=== PATIENT | female | born 1935 | race Caucasian/White ===

== ENCOUNTER 2018-05-04 18:21 | Observation (INO) | payer MEDICARE, BC ==
[~2018-05-04] VITALS: Ht 154.9 cm; Wt 53.2 kg
[2018-05-04 18:55] LABS: BASOPHILS % (AUTO) 0.3 % (0-1); EOSINOPHILS # (AUTO) 0.2 X10'3 (0-0.9); EOSINOPHILS % (AUTO) 1.7 % (0-6); HEMATOCRIT 39.3 % (35.0-45.0); HEMOGLOBIN 13.4 g/dl (12.0-16.0); LYMPHOCYTES # (AUTO) 1.3 X10'3 (1.1-4.8); LYMPHOCYTES % (AUTO) 13.6 % (21-51); MEAN CORPUSCULAR HGB CONC 34.2 g/dL (33.0-36.5); MEAN CORPUSCULAR VOLUME 96.5 FL (78-98); MEAN PLATELET VOLUME 8.8 FL (7.4-10.4); MONOCYTES # (AUTO) 0.7 X10'3 (0-0.9); MONOCYTES % (AUTO) 7.1 % (2-12); NEUTROPHILS # (AUTO) 7.6 X10'3 (1.8-7.7); NEUTROPHILS % (AUTO) 77.3 % (42-75); PLATELET COUNT 296 X10'3 (140-440); RED BLOOD COUNT 4.07 X10'6 (4.20-5.60); RED CELL DISTRIBUTION WIDTH 12.6 % (11.5-14.5); WHITE BLOOD COUNT 9.9 X10'3 (4.5-11.0)
[2018-05-04 19:01] LABS: PARTIAL THROMBOPLASTIN TIME 29 SECONDS (22-32); PROTHROMBIN TIME 10.4 SECONDS (9.0-12.0)
[2018-05-04 19:04] LABS: ALANINE AMINOTRANSFERASE 25 U/L (12-78); ALBUMIN 3.7 G/DL (3.4-5.0); ALKALINE PHOSPHATASE 62 IU/L (46-116); ANION GAP 12 (8-16); ASPARTATE AMINO TRANSFERASE 28 U/L (10-37); BILIRUBIN,TOTAL 1.3 MG/DL (0.1-1.0); BLOOD UREA NITROGEN 7 MG/DL (7-18); BUN/CREATININE RATIO 12.1 (6.6-38.0); CALCIUM 8.7 MG/DL (8.5-10.1); CHLORIDE 90 MMOL/L (99-107); CREATININE 0.58 MG/DL (0.40-0.90); GLUCOSE 104 MG/DL (70-104); MAGNESIUM 1.5 MG/DL (1.5-2.4); SODIUM 129 MMOL/L (135-145); TOTAL CARBON DIOXIDE 27.2 MMOL/L (24-32); TOTAL PROTEIN 7.5 G/DL (6.4-8.2); eGFR > 90 ML/MIN
[2018-05-04] MEDS ORDERED: labetalol 20mg/4ml (5mg/ml) syringe IV ONE (19:30)
[2018-05-04] MEDS ORDERED: HYDROcodone/acetaminophen 5mg/325mg tablet PO PRN (21:00)
[2018-05-04] MEDS ORDERED: magnesium hydroxide 30ml (MOM) UD suspension PO PRN (21:00)
[2018-05-04] MEDS ORDERED: acetaminophen 325mg tablet PO PRN (21:00)
[2018-05-04] MEDS ORDERED: potassium Cl 20 mEq SR tablet PO ONE (21:00)
[2018-05-04] MEDS ORDERED: morphine 4 MG/ML inj SYRINge IV PRN (21:00)
[2018-05-04] MEDS ORDERED: cloNIDine 0.1 mg tablet PO PRN (21:00)
[2018-05-04] MEDS ORDERED: ondansetron/PF 4mg/2ml inj IV PRN (21:00)
[2018-05-04] MEDS ORDERED: mag hydrox/Alum hydrox/simeth 30ml oral suspension PO PRN (21:00)
[2018-05-04] MEDS ORDERED: CLOP75TA35 PO (21:11)
[2018-05-04] MEDS ORDERED: ROSU10TA PO (21:11)
[2018-05-04] MEDS ORDERED: HYDR12.55 PO (21:11)
[2018-05-04] MEDS ORDERED: LEVO75TA PO (21:11)
[2018-05-04] MEDS ORDERED: OLME20TA23 (21:11)
[2018-05-04] MEDS ORDERED: METO100T7 PO (21:11)
[2018-05-04] MEDS ORDERED: VALS160T2 PO (21:11)
[2018-05-04] MEDS ORDERED: OLME1TAB40 (21:11)
[2018-05-04 21:59] LABS: HEMOGLOBIN A1C 5.4 % (4.5-6.2)
--- NOTE | 2018-05-04 22:00 | NUR ---
Received report from Alek BUTLER in ER, pt arrived via [place] ambulated to bathroom then bed, will assess.
[2018-05-04 22:15] VITALS: BP 183/77
[2018-05-04] MEDS ORDERED: NABU500T2 PO (22:37)
[2018-05-04] MEDS ORDERED: DENO60DI (22:37)
[2018-05-04] MEDS ORDERED: CYAN100070 PO (22:37)
[2018-05-04] MEDS ORDERED: MV-M1TAB19 PO (22:37)
[2018-05-04] MEDS ORDERED: CLOB15OI3 TOP (22:37)
[2018-05-04] MEDS ORDERED: CALC600T12 PO (22:37)
[2018-05-04] MEDS ORDERED: MULT-1141 PO (22:37)
[2018-05-04] MEDS ORDERED: ASPI-1053 PO (22:37)
[2018-05-04 23:41] VITALS: BP 171/90
[2018-05-05 00:47] LABS: ALANINE AMINOTRANSFERASE 22 U/L (12-78); ALBUMIN 3.1 G/DL (3.4-5.0); ALBUMIN/GLOBULIN RATIO 0.9 (1.1-1.5); ALKALINE PHOSPHATASE 51 IU/L (46-116); ANION GAP 11 (8-16); ASPARTATE AMINO TRANSFERASE 21 U/L (10-37); BILIRUBIN,TOTAL 1.2 MG/DL (0.1-1.0); BLOOD UREA NITROGEN 7 MG/DL (7-18); BUN/CREATININE RATIO 12.7 (6.6-38.0); CHLORIDE 91 MMOL/L (99-107); CREATININE 0.55 MG/DL (0.40-0.90); GLUCOSE 151 MG/DL (70-104); POTASSIUM 3.6 MMOL/L (3.5-5.1); SODIUM 128 MMOL/L (135-145); TOTAL CARBON DIOXIDE 26.5 MMOL/L (24-32); TOTAL PROTEIN 6.4 G/DL (6.4-8.2); eGFR > 90 ML/MIN
[2018-05-05 00:49] LABS: CHOL/HDL RATIO 1.7 (0.00-4.99); CHOLESTEROL 154 MG/DL (0-200); HDL CHOLESTEROL 93 MG/DL (35-60); LDL CHOLESTEROL 63 MG/DL (50-100); MAGNESIUM 1.4 MG/DL (1.5-2.4); TRIGLYCERIDES 27 MG/DL (20-135)
[2018-05-05] MEDS ORDERED: potassium Cl 40MEQ/NS 500ml 500 ML IV PRN ×2 (02:50)
[2018-05-05] MEDS ORDERED: potassium Cl 20 mEq SR tablet PO PRN ×2 (02:50)
--- NOTE | 2018-05-05 02:58 | NUR ---
Informed Dr. Fortune of increasing trends in trops from .04 to 0.13, to 0.21, Dr. Fortune stated she is going to wait until 4th trop comes back, and informed Dr. Fortune of 1.4 Mg she ordered the K and Mg protocol
--- NOTE | 2018-05-05 06:20 | NUR ---
Gave report to Petra BUTLER pt is resting on RA in no apparent distress, call light and items of freq use within reach.
--- NOTE | 2018-05-05 06:31 | NUR ---
Patient in room JESUS 356. I have received report from OLGA BUTLER and had the opportunity to ask questions and assume patient care. Addendum: 05/05/18 at 0631 by Petra Rodriguez RN FROM [facility]
[2018-05-05 07:00] VITALS: BP 118/64
[2018-05-05] MEDS ORDERED: enoxaparin 40mg/0.4ml syringe SUBCUT SCH (08:00)
[2018-05-05 08:14] LABS: BASOPHILS % (AUTO) 0.1 % (0-1); EOSINOPHILS % (AUTO) 0.5 % (0-6); HEMATOCRIT 34.1 % (35.0-45.0); HEMOGLOBIN 11.7 g/dl (12.0-16.0); LYMPHOCYTES # (AUTO) 1.4 X10'3 (1.1-4.8); LYMPHOCYTES % (AUTO) 15.5 % (21-51); MEAN CORPUSCULAR HEMOGLOBIN 33.2 PG (27.0-31.0); MEAN CORPUSCULAR HGB CONC 34.4 g/dL (33.0-36.5); MEAN CORPUSCULAR VOLUME 96.5 FL (78-98); MEAN PLATELET VOLUME 9.1 FL (7.4-10.4); MONOCYTES # (AUTO) 1.1 X10'3 (0-0.9); MONOCYTES % (AUTO) 11.9 % (2-12); NEUTROPHILS # (AUTO) 6.5 X10'3 (1.8-7.7); PLATELET COUNT 206 X10'3 (140-440); RED BLOOD COUNT 3.53 X10'6 (4.20-5.60); RED CELL DISTRIBUTION WIDTH 13.1 % (11.5-14.5); WHITE BLOOD COUNT 9.1 X10'3 (4.5-11.0)
[2018-05-05 08:26] LABS: POTASSIUM 3.9 MMOL/L (3.5-5.1)
[2018-05-05] MEDS ORDERED: magnesium 2GM in 50ml NS 50 ML IV PRN (10:40)
[2018-05-05] MEDS ORDERED: magnesium Cl slow-release 64mg tablet PO PRN (10:40)
[2018-05-05] MEDS ORDERED: magnesium 4gm in 100ml NS 100 ML IV PRN (10:40)
[2018-05-05] MEDS ORDERED: LOSA50TA64 PO (12:18)
[2018-05-05] MEDS ORDERED: HYDR12.5 PO (12:18)
[2018-05-05] MEDS ORDERED: MAGN400C PO (13:19)
[2018-05-06] MEDS ORDERED: metoprolol succinate 25mg (24-HOUR) SR. Tablet PO SCH (08:00)
[2018-05-06] MEDS ORDERED: HYDROchlorothiazide 12.5mg capsule PO SCH (08:00)
[2018-05-06] MEDS ORDERED: atorvastatin 20mg tablet PO SCH (08:00)
[2018-05-06] MEDS ORDERED: aspirin 81mg tab.chew PO SCH (08:00)
[2018-05-06] MEDS ORDERED: losartan 50mg tablet PO SCH (08:00)
[2018-05-06] MEDS ORDERED: levoTHYROXINE 75mcg tablet PO SCH (08:00)
[2018-05-06] MEDS ORDERED: clopidogrel 75mg tablet PO SCH (08:00)
== END 2018-05-05 15:35 | disposition home or self-care (01) ==
LOC: ER 18:22 → ED HOLD 21:00 → SUR 3N 22:04
PROVIDERS: ADMIT Internal Medicine; ATTEND Internal Medicine
DX: R07.89 Other chest pain (principal); I10 Essential (primary) hypertension; I16.0 Hypertensive urgency; E03.9 Hypothyroidism, unspecified; E87.6 Hypokalemia; E87.1 Hypo-osmolality and hyponatremia; I73.9 Peripheral vascular disease, unspecified; Z86.718 Personal history of other venous thrombosis and embolism; Z87.891 Personal history of nicotine dependence
CPT/HCPCS: 36415; 71045; 80053; 80061; 83036; 83735; 83880; 84132; 84484; 85025; 85610; 85730; 87070; 93005; 93306; 96372; 96374; 99284; G0378; J1650; J3490

== ENCOUNTER 2020-03-11 15:11 | Inpatient (IN) | payer MEDICARE, BC ==
[~2020-03-11] VITALS: Ht 160 cm; Wt 46.5 kg
[~2020-03-11 15:11] MED LIST: CLOP75TA33 PO; HYDR12.55 PO; LEVO75TA PO; METO-411 PO; PANT40TA54 PO; ROSU40TA22 PO; VALS320T17 PO
--- NOTE | 2020-03-11 15:59 | NUR ---
felix reports pt was negative covid on 03/04/2020
[2020-03-11] MEDS ORDERED: OMEP40CA13 PO (16:48)
[2020-03-11] MEDS ORDERED: furosemide 10 MG/1 ML 10ml inj IV ONE (16:55)
[2020-03-11 18:42] LABS: BASOPHILS # (AUTO) 0.1 X10'3 (0-0.2); EOSINOPHILS # (AUTO) 0.1 X10'3 (0-0.9); HEMOGLOBIN 9.2 g/dl (12.0-16.0); LYMPHOCYTES # (AUTO) 1.7 X10'3 (1.1-4.8); MEAN CORPUSCULAR HEMOGLOBIN 32.1 PG (27.0-31.0); MEAN PLATELET VOLUME 7.6 FL (7.4-10.4); MONOCYTES % (AUTO) 7.6 % (2-12); WHITE BLOOD COUNT 13.2 X10'3 (4.5-11.0)
[2020-03-11 18:44] LABS: BASOPHILS % (AUTO) 0.8 % (0-1); HEMATOCRIT 26.7 % (35.0-45.0); LYMPHOCYTES % (AUTO) 12.5 % (21-51); MEAN CORPUSCULAR HGB CONC 34.2 g/dL (33.0-36.5); MEAN CORPUSCULAR VOLUME 93.6 FL (78-98); NEUTROPHILS # (AUTO) 10.3 X10'3 (1.8-7.7); NEUTROPHILS % (AUTO) 78.1 % (42-75); PLATELET COUNT 645 X10'3 (140-440); RED BLOOD COUNT 2.86 X10'6 (4.20-5.60)
[2020-03-11 18:57] LABS: PARTIAL THROMBOPLASTIN TIME 26 SECONDS (22-32)
[2020-03-11 19:01] LABS: ALANINE AMINOTRANSFERASE 21 U/L (12-78); ALBUMIN 1.4 G/DL (3.4-5.0); ALBUMIN/GLOBULIN RATIO 0.3 (1.1-1.5); ALKALINE PHOSPHATASE 84 IU/L (46-116); ANION GAP 8 (8-16); ASPARTATE AMINO TRANSFERASE 25 U/L (10-37); BILIRUBIN,TOTAL 0.3 MG/DL (0.1-1.0); BLOOD UREA NITROGEN 19 MG/DL (7-18); BUN/CREATININE RATIO 15.3 (6.6-38.0); CALCIUM 8.2 MG/DL (8.5-10.1); CHLORIDE 98 MMOL/L (99-107); CREATININE 1.24 MG/DL (0.40-0.90); GLUCOSE 92 MG/DL (70-104); POTASSIUM 3.6 MMOL/L (3.5-5.1); SODIUM 135 MMOL/L (135-145); TOTAL CARBON DIOXIDE 28.8 MMOL/L (24-32); TOTAL PROTEIN 5.9 G/DL (6.4-8.2); eGFR 41 ML/MIN
[2020-03-11] MEDS ORDERED: acetaminophen 325mg tablet PO PRN (20:25)
[2020-03-11] MEDS ORDERED: magnesium 2GM in 50ml NS 50 ML IV PRN (20:25)
[2020-03-11] MEDS ORDERED: albuterol 2.5 MG/3 ML nebule NEB PRN ×2 (20:25)
[2020-03-11] MEDS ORDERED: magnesium Cl slow-release 64mg tablet PO PRN (20:25)
[2020-03-11] MEDS ORDERED: ondansetron/PF 4mg/2ml inj IV PRN (20:25)
[2020-03-11] MEDS ORDERED: magnesium 4gm in 100ml NS 100 ML IV PRN (20:25)
[2020-03-11] MEDS ORDERED: potassium CL 10mEq/100ml bag 100 ML IV PRN ×2 (20:25)
[2020-03-11] MEDS ORDERED: potassium Cl 20 mEq SR tablet PO PRN (20:25)
--- NOTE | 2020-03-11 20:30 | NUR ---
pt had her call light on. The oxygen port to the NRB had pulled off. She was rebreathing her CO2 and very SOB and sat with a good pleth was 57%. Rehooked the oxygen. Informed her to take deep breaths and it popped up to low 90%camden Gomez, Primary RN made aware.
--- NOTE | 2020-03-11 21:08 | NUR ---
PT HAS BEEN ON NRB 15 L. ATTEMPTED TO WEAN PT. PLACED ON SIMPLE FACE MASK AT 8 L. PT O2 SATURATIONS AT 80%. INCREASED TO 10 L AND OS SATS AT 92%. WILL CONTINUE TO MONITOR. ALONSO GOMEZ RN AWARE
--- NOTE | 2020-03-11 22:36 | NUR ---
her sats decreased in the 80s on simple fm, placed her on 15 L NRB and repositioned her up into the bed. Will monitor.
[2020-03-12] VITALS: BP 139/61
--- NOTE | 2020-03-12 | NUR ---
Patient in room PCU 3014. I have received report from CARRIE Marrero and had the opportunity to ask questions and assume patient care. Patient transferred by abena from ED. Patient resting in bed, on 15L non-rebreather. Received in report the patients oxygenation saturation decreases on anything less than a non-rebreather as she is a mouth breather. Appears alert, oriented to person place and location. Came with belongings. Wick in place. VSS. Will continue to monitor throughout shift.
[2020-03-12 02:00] VITALS: BP 129/62
[2020-03-12 06:38] LABS: BASOPHILS # (AUTO) 0.1 X10'3 (0-0.2); EOSINOPHILS # (AUTO) 0.3 X10'3 (0-0.9); MONOCYTES # (AUTO) 0.9 X10'3 (0-0.9)
[2020-03-12 06:39] LABS: BASOPHILS % (AUTO) 1.3 % (0-1); EOSINOPHILS % (AUTO) 2.3 % (0-6); HEMATOCRIT 25.6 % (35.0-45.0); LYMPHOCYTES # (AUTO) 1.5 X10'3 (1.1-4.8); LYMPHOCYTES % (AUTO) 12.2 % (21-51); MEAN CORPUSCULAR HEMOGLOBIN 33.2 PG (27.0-31.0); MEAN CORPUSCULAR HGB CONC 35.3 g/dL (33.0-36.5); MEAN PLATELET VOLUME 7.5 FL (7.4-10.4); MONOCYTES % (AUTO) 7.9 % (2-12); NEUTROPHILS # (AUTO) 9.1 X10'3 (1.8-7.7); NEUTROPHILS % (AUTO) 76.3 % (42-75); PLATELET COUNT 614 X10'3 (140-440); RED BLOOD COUNT 2.73 X10'6 (4.20-5.60); RED CELL DISTRIBUTION WIDTH 14.2 % (11.5-14.5); WHITE BLOOD COUNT 11.9 X10'3 (4.5-11.0)
--- NOTE | 2020-03-12 06:40 | NUR ---
Problems reprioritized. Patient report given, questions answered & plan of care reviewed with CARRIE Lambert. Medications administered as ordered, care plan followed. Patient resting in bed, no signs of distress. Safety measures in place, bed in low and locked position. Will continue to monitor for remainder of shift.
[2020-03-12 06:49] LABS: ALBUMIN 1.3 G/DL (3.4-5.0); ANION GAP 8 (8-16); BLOOD UREA NITROGEN 19 MG/DL (7-18); BUN/CREATININE RATIO 15.6 (6.6-38.0); CALCIUM 7.5 MG/DL (8.5-10.1); CHLORIDE 100 MMOL/L (99-107); CREATININE 1.22 MG/DL (0.40-0.90); GLUCOSE 72 MG/DL (70-104); POTASSIUM 3.5 MMOL/L (3.5-5.1); SODIUM 137 MMOL/L (135-145); TOTAL CARBON DIOXIDE 29.2 MMOL/L (24-32); eGFR 42 ML/MIN
--- NOTE | 2020-03-12 06:51 | NUR ---
Patient in room PCU 3014. I have received report from SHAR BUTLER and had the opportunity to ask questions and assume patient care.
[2020-03-12 07:00] VITALS: BP 129/65
[2020-03-12 07:36] LABS: MAGNESIUM 0.9 MG/DL (1.5-2.4)
--- NOTE | 2020-03-12 07:37 | NUR ---
LAB CALLED FOR A CRITICAL MAG OF 0.9
[2020-03-12] MEDS: K and/or MAG REPLACEMENT MC SCH ×2 (08:00→20:00)
[2020-03-12] MEDS ORDERED: furosemide 40mg/4ml inj IV SCH ×2 (08:00→20:00)
[2020-03-12] MEDS: metoprolol succinate 25mg (24-HOUR) SR. Tablet PO SCH (08:25)
[2020-03-12] MEDS: HYDROchlorothiazide 12.5mg capsule PO SCH (08:25)
[2020-03-12] MEDS: atorvastatin 20mg tablet PO SCH (08:26)
[2020-03-12] MEDS: losartan 50mg tablet PO SCH (08:26)
[2020-03-12] MEDS: levoTHYROXINE 75mcg tablet PO SCH (08:26)
[2020-03-12] MEDS: clopidogrel 75mg tablet PO SCH (08:27)
[2020-03-12] MEDS: furosemide 40mg/4ml inj IV SCH ×2 (08:27→19:14)
[2020-03-12] MEDS: heparin, porcine 5000 units/ml vial SQ SCH ×2 (08:27→19:14)
--- NOTE | 2020-03-12 10:15 | NUR ---
[facility] CALLED TO CHEK ON PT AND INQUIRE ADMIT DX. DISCUSSED CASE.
[2020-03-12 11:00] VITALS: BP 112/64
--- NOTE | 2020-03-12 11:29 | NUR ---
BMI low for age at 18.6; per documented weight history patient's last scale weight was 63.78 kg on bedscale on 03/05/2020; current documented weight 47.73 kg as "ED" weight, appears as error, recommend taking new weight for accuracy. Addendum: 03/12/20 at [address] Amended: Links added.
[2020-03-12] MEDS: pantoprazole 40mg Tablet.DR PO SCH (11:45)
[2020-03-12 18:00] VITALS: BP 143/58
--- NOTE | 2020-03-12 18:30 | NUR ---
Patient in room PCU 3014. I have received report from Petra BUTLER and had the opportunity to ask questions and assume patient care.
--- NOTE | 2020-03-12 18:30 | NUR ---
Problems reprioritized. Patient report given, questions answered & plan of care reviewed with JAJA BUTLRE.
[2020-03-12] MEDS: magnesium Cl slow-release 64mg tablet PO SCH (19:15)
[2020-03-12] MEDS ORDERED: magnesium oxide 400mg tablet PO SCH (20:00)
[2020-03-12] MEDS ORDERED: ondansetron 4mg rapidly disintigrating tab PO PRN (20:00)
[2020-03-12 22:00] VITALS: BP 141/62
[2020-03-13 02:00] VITALS: BP 138/70
[2020-03-13 06:00] VITALS: BP 138/54
--- NOTE | 2020-03-13 06:16 | NUR ---
Problems reprioritized. Patient report given, questions answered & plan of care reviewed with HIEN BUTLER.
--- NOTE | 2020-03-13 06:24 | NUR ---
Patient in room U 3014B. I have received report from CARRIE WILKINSON and had the opportunity to ask questions and assume patient care.
[2020-03-13] MEDS: pantoprazole 40mg Tablet.DR PO SCH (07:30)
[2020-03-13 07:59] LABS: ALBUMIN 1.2 G/DL (3.4-5.0); ANION GAP 5 (8-16); BLOOD UREA NITROGEN 19 MG/DL (7-18); BUN/CREATININE RATIO 18.6 (6.6-38.0); CALCIUM 8.5 MG/DL (8.5-10.1); CHLORIDE 99 MMOL/L (99-107); CREATININE 1.02 MG/DL (0.40-0.90); GLUCOSE 83 MG/DL (70-104); MAGNESIUM 2.4 MG/DL (1.5-2.4); SODIUM 138 MMOL/L (135-145); TOTAL CARBON DIOXIDE 34.2 MMOL/L (24-32); eGFR 51 ML/MIN
[2020-03-13] MEDS: levoTHYROXINE 75mcg tablet PO SCH (08:00)
[2020-03-13] MEDS: azithromycin 250mg tablet PO SCH (08:00)
[2020-03-13] MEDS: furosemide 40mg/4ml inj IV SCH ×2 (08:00→21:07)
[2020-03-13] MEDS: atorvastatin 20mg tablet PO SCH (08:00)
[2020-03-13] MEDS: CefTRIAXone/D5W-Rocephin 1gm 50 ML IV SCH (08:00)
[2020-03-13] MEDS: heparin, porcine 5000 units/ml vial SQ SCH ×2 (08:00→20:00)
[2020-03-13] MEDS: K and/or MAG REPLACEMENT MC SCH ×2 (08:00→20:00)
[2020-03-13] MEDS: HYDROchlorothiazide 12.5mg capsule PO SCH (08:00)
[2020-03-13] MEDS: magnesium Cl slow-release 64mg tablet PO SCH ×2 (08:00→20:00)
[2020-03-13] MEDS: clopidogrel 75mg tablet PO SCH (08:00)
[2020-03-13] MEDS: metoprolol succinate 25mg (24-HOUR) SR. Tablet PO SCH (08:00)
[2020-03-13] MEDS: losartan 50mg tablet PO SCH (08:00)
[2020-03-13 08:02] LABS: POTASSIUM 2.6 MMOL/L (3.5-5.1)
--- NOTE | 2020-03-13 08:04 | NUR ---
CRITICAL POTASSIUM 2.9 # [id number], DR ZAVALA AWAITING CALL BACK. WILL REPLACE PER PROTOCAL
[2020-03-13 08:23] LABS: BASOPHILS # (AUTO) 0.1 X10'3 (0-0.2); BASOPHILS % (AUTO) 0.8 % (0-1); EOSINOPHILS # (AUTO) 0.4 X10'3 (0-0.9); EOSINOPHILS % (AUTO) 3.8 % (0-6); HEMATOCRIT 25.1 % (35.0-45.0); HEMOGLOBIN 8.8 g/dl (12.0-16.0); LYMPHOCYTES # (AUTO) 1.4 X10'3 (1.1-4.8); LYMPHOCYTES % (AUTO) 13.9 % (21-51); MEAN CORPUSCULAR HEMOGLOBIN 32.6 PG (27.0-31.0); MEAN CORPUSCULAR VOLUME 93.4 FL (78-98); MEAN PLATELET VOLUME 7.6 FL (7.4-10.4); MONOCYTES # (AUTO) 0.8 X10'3 (0-0.9); MONOCYTES % (AUTO) 7.6 % (2-12); NEUTROPHILS # (AUTO) 7.3 X10'3 (1.8-7.7); NEUTROPHILS % (AUTO) 73.9 % (42-75); PLATELET COUNT 676 X10'3 (140-440); RED BLOOD COUNT 2.69 X10'6 (4.20-5.60); WHITE BLOOD COUNT 9.9 X10'3 (4.5-11.0)
[2020-03-13] MEDS: potassium Cl 20 mEq SR tablet PO PRN ×2 (08:40→19:12)
[2020-03-13] MEDS: ipratropium/albuterol 3ml nebule NEB SCH ×3 (09:00→18:39)
[2020-03-13 11:00] VITALS: BP 115/42
[2020-03-13] MEDS ORDERED: iohexol 350MG/ML 100ml bottle IV ONE (14:14)
[2020-03-13 15:00] VITALS: BP 118/49
[2020-03-13] MEDS ORDERED: heparin 10,000 units/1 ML INJ IV ONE (17:55)
[2020-03-13 18:00] VITALS: BP 149/56
--- NOTE | 2020-03-13 18:30 | NUR ---
Problems reprioritized. Patient report given, questions answered & plan of care reviewed with CARRIE BAIRES.
[2020-03-13 19:21] LABS: ABG BASE EXCESS 11.8 mmol/L (-2.0-2.0); ABG HCO3 36.5 mmol/L (22.0-26.0); ABG OXYGEN SATURATION 93.2 % (94-97); ABG PCO2 (T) 47.1 mmHg (32.0-45.0); ABG PO2 (T) 64.5 mmHg (75.0-100.0); FCOHb 0.3 % (0.0-3.9); FLOW 15 L/min; FMetHb 0.2 % (0.0-1.5); FO2Hb 92.7 % (94-97); PATIENT TEMPERATURE 36.4; TOTAL HEMOGLOBIN 10.4 G/dl (12.0-16.0)
[2020-03-13] MEDS: lactobacillus rhamnosus 10,000 MMU CELLS/CAPSULE PO SCH (20:00)
[2020-03-13] MEDS: guaiFENesin ER 600mg tablet PO SCH (21:00)
[2020-03-13] MEDS: heparin 25,000 UNIT/250ml bag 250 ML IV SCH (21:15)
[2020-03-13 22:00] VITALS: BP 146/52
[2020-03-14 02:00] VITALS: BP 140/40
[2020-03-14 04:30] LABS: ALBUMIN 1.2 G/DL (3.4-5.0); ANION GAP 5 (8-16); BLOOD UREA NITROGEN 16 MG/DL (7-18); BUN/CREATININE RATIO 14.7 (6.6-38.0); CALCIUM 7.5 MG/DL (8.5-10.1); CHLORIDE 99 MMOL/L (99-107); CREATININE 1.09 MG/DL (0.40-0.90); GLUCOSE 75 MG/DL (70-104); MAGNESIUM 1.4 MG/DL (1.5-2.4); SODIUM 137 MMOL/L (135-145); eGFR 48 ML/MIN
[2020-03-14 04:32] LABS: POTASSIUM 3.6 MMOL/L (3.5-5.1)
[2020-03-14 04:34] LABS: BASOPHILS # (AUTO) 0.1 X10'3 (0-0.2); EOSINOPHILS # (AUTO) 0.5 X10'3 (0-0.9); LYMPHOCYTES # (AUTO) 1.8 X10'3 (1.1-4.8); NEUTROPHILS # (AUTO) 7.6 X10'3 (1.8-7.7)
[2020-03-14 04:35] LABS: BASOPHILS % (AUTO) 1.1 % (0-1); EOSINOPHILS % (AUTO) 4.8 % (0-6); HEMATOCRIT 28.4 % (35.0-45.0); HEMOGLOBIN 9.7 g/dl (12.0-16.0); LYMPHOCYTES % (AUTO) 16.2 % (21-51); MEAN CORPUSCULAR HEMOGLOBIN 31.7 PG (27.0-31.0); MEAN CORPUSCULAR VOLUME 93.3 FL (78-98); MEAN PLATELET VOLUME 7.5 FL (7.4-10.4); MONOCYTES # (AUTO) 0.9 X10'3 (0-0.9); MONOCYTES % (AUTO) 7.9 % (2-12); PLATELET COUNT 629 X10'3 (140-440); RED BLOOD COUNT 3.05 X10'6 (4.20-5.60); RED CELL DISTRIBUTION WIDTH 14.4 % (11.5-14.5); WHITE BLOOD COUNT 10.9 X10'3 (4.5-11.0)
--- NOTE | 2020-03-14 04:57 | NUR ---
Recieved critical PTT result of >139. Stopped Heparin drip per protocol at [address] for [address] Rodriguez; no change in orders at this time, continue protocol.
[2020-03-14 06:00] VITALS: BP 119/73
--- NOTE | 2020-03-14 06:00 | NUR ---
Patient in room PCU 3014. I have received report from CARRIE Hernandez and had the opportunity to ask questions and assume patient care.
[2020-03-14] MEDS: heparin 25,000 UNIT/250ml bag 250 ML IV SCH ×3 (07:04→17:31)
[2020-03-14] MEDS: ipratropium/albuterol 3ml nebule NEB SCH ×3 (07:39→21:22)
[2020-03-14] MEDS: budesonide 0.5mg/2ml UD nebule IH SCH ×2 (07:39→21:23)
[2020-03-14] MEDS: levoTHYROXINE 75mcg tablet PO SCH (07:58)
[2020-03-14] MEDS: heparin, porcine 5000 units/ml vial SQ SCH (08:00)
[2020-03-14] MEDS: K and/or MAG REPLACEMENT MC SCH ×2 (08:00→20:00)
[2020-03-14] MEDS: metoprolol succinate 25mg (24-HOUR) SR. Tablet PO SCH (08:01)
[2020-03-14] MEDS: pantoprazole 40mg Tablet.DR PO SCH (08:02)
[2020-03-14] MEDS: azithromycin 250mg tablet PO SCH (08:02)
[2020-03-14] MEDS: atorvastatin 20mg tablet PO SCH (08:03)
[2020-03-14] MEDS: magnesium Cl slow-release 64mg tablet PO SCH ×2 (08:03→20:48)
[2020-03-14] MEDS: guaiFENesin ER 600mg tablet PO SCH ×3 (08:07→20:55)
[2020-03-14] MEDS: lactobacillus rhamnosus 10,000 MMU CELLS/CAPSULE PO SCH ×2 (08:09→20:47)
[2020-03-14] MEDS: furosemide 40mg/4ml inj IV SCH ×2 (08:09→20:55)
[2020-03-14] MEDS: losartan 50mg tablet PO SCH (10:55)
[2020-03-14] MEDS: HYDROchlorothiazide 12.5mg capsule PO SCH (10:55)
[2020-03-14] MEDS: CefTRIAXone/D5W-Rocephin 1gm 50 ML IV SCH (10:55)
--- NOTE | 2020-03-14 10:55 | NUR ---
heparin stopped. Addendum: 03/14/20 at 1109 by Nghia Tirado RN To MD Brown; 3014B, Isai Enamorado. Patient had a critical aptt greater than 139. I have stopped the heparin drip for 2 hours per protocol, pt asymptomatic and no signs of bleeding. RAMONITA Agrawal
[2020-03-14 11:00] VITALS: BP 134/63
--- NOTE | 2020-03-14 13:12 | NUR ---
heparin resumed at 600 units/hr.
[2020-03-14 15:00] VITALS: BP 139/69
--- NOTE | 2020-03-14 17:26 | NUR ---
Per MD Brown, to resume Heparin as thora can be managed medically at this time, to resume based off 91Ptt
[2020-03-14 18:00] VITALS: BP 149/62
--- NOTE | 2020-03-14 18:54 | NUR ---
Problems reprioritized. Patient report given, questions answered & plan of care reviewed with CARRIE Hester.
[2020-03-14 22:00] VITALS: BP 162/55
[2020-03-15 02:00] VITALS: BP 151/58
[2020-03-15 06:20] LABS: BASOPHILS # (AUTO) 0.2 X10'3 (0-0.2); HEMOGLOBIN 8.8 g/dl (12.0-16.0); MEAN CORPUSCULAR VOLUME 93.4 FL (78-98)
[2020-03-15 06:24] LABS: BASOPHILS % (AUTO) 1.7 % (0-1); EOSINOPHILS # (AUTO) 0.5 X10'3 (0-0.9); EOSINOPHILS % (AUTO) 5.1 % (0-6); HEMATOCRIT 24.9 % (35.0-45.0); LYMPHOCYTES # (AUTO) 1.8 X10'3 (1.1-4.8); LYMPHOCYTES % (AUTO) 19.5 % (21-51); MEAN CORPUSCULAR HEMOGLOBIN 32.9 PG (27.0-31.0); MEAN CORPUSCULAR HGB CONC 35.2 g/dL (33.0-36.5); MEAN PLATELET VOLUME 7.3 FL (7.4-10.4); MONOCYTES # (AUTO) 0.8 X10'3 (0-0.9); MONOCYTES % (AUTO) 8.4 % (2-12); NEUTROPHILS # (AUTO) 5.9 X10'3 (1.8-7.7); NEUTROPHILS % (AUTO) 65.3 % (42-75); PLATELET COUNT 621 X10'3 (140-440); RED BLOOD COUNT 2.67 X10'6 (4.20-5.60); RED CELL DISTRIBUTION WIDTH 14.1 % (11.5-14.5)
[2020-03-15 06:26] LABS: ALBUMIN 1.3 G/DL (3.4-5.0); ANION GAP 3 (8-16); BLOOD UREA NITROGEN 13 MG/DL (7-18); BUN/CREATININE RATIO 12.6 (6.6-38.0); CALCIUM 7.1 MG/DL (8.5-10.1); CHLORIDE 99 MMOL/L (99-107); CREATININE 1.03 MG/DL (0.40-0.90); GLUCOSE 73 MG/DL (70-104); MAGNESIUM 1.2 MG/DL (1.5-2.4); SODIUM 140 MMOL/L (135-145); eGFR 51 ML/MIN
[2020-03-15 06:30] LABS: POTASSIUM 2.8 MMOL/L (3.5-5.1)
--- NOTE | 2020-03-15 06:30 | NUR ---
Patient in room PCU 3014. I have received report from Kacie BUTLER and had the opportunity to ask questions and assume patient care. Patient awake in bed. Heparin gtt @ 500 units. 15L high flow oxygen. All immediate needs met at this time.
[2020-03-15] MEDS ORDERED: magnesium Cl slow-release 64mg tablet PO PRN (06:55)
[2020-03-15] MEDS ORDERED: potassium Cl 20 mEq SR tablet PO PRN (06:55)
[2020-03-15] MEDS ORDERED: magnesium 4gm in 100ml NS 100 ML IV PRN (06:55)
[2020-03-15] MEDS ORDERED: potassium Cl 40MEQ/1/2NS 520ml 520 ML IV PRN (06:55)
[2020-03-15 07:00] VITALS: BP 133/52
[2020-03-15] MEDS: K and/or MAG REPLACEMENT MC SCH ×2 (08:00→20:00)
[2020-03-15] MEDS: ipratropium/albuterol 3ml nebule NEB SCH ×3 (08:08→20:06)
[2020-03-15] MEDS: budesonide 0.5mg/2ml UD nebule IH SCH ×2 (08:08→20:05)
[2020-03-15] MEDS: lactobacillus rhamnosus 10,000 MMU CELLS/CAPSULE PO SCH ×2 (09:45→21:07)
[2020-03-15] MEDS: losartan 50mg tablet PO SCH (09:45)
[2020-03-15] MEDS: levoTHYROXINE 75mcg tablet PO SCH (09:45)
[2020-03-15] MEDS: magnesium Cl slow-release 64mg tablet PO SCH ×2 (09:45→21:06)
[2020-03-15] MEDS: metoprolol succinate 25mg (24-HOUR) SR. Tablet PO SCH (09:45)
[2020-03-15] MEDS: guaiFENesin ER 600mg tablet PO SCH ×2 (09:46→21:07)
[2020-03-15] MEDS: furosemide 40mg/4ml inj IV SCH ×4 (09:46→21:12)
[2020-03-15] MEDS: HYDROchlorothiazide 12.5mg capsule PO SCH (09:46)
[2020-03-15] MEDS: azithromycin 250mg tablet PO SCH (09:46)
[2020-03-15] MEDS: atorvastatin 20mg tablet PO SCH (09:46)
[2020-03-15] MEDS: pantoprazole 40mg Tablet.DR PO SCH (09:46)
[2020-03-15] MEDS: CefTRIAXone/D5W-Rocephin 1gm 50 ML IV SCH ×3 (09:47→12:30)
[2020-03-15 11:00] VITALS: BP 128/51
[2020-03-15] MEDS: potassium Cl 20 mEq SR tablet PO PRN ×3 (11:14→21:06)
[2020-03-15] MEDS: heparin 10,000 units/1 ML INJ IV PRN (13:52)
[2020-03-15] MEDS: heparin 25,000 UNIT/250ml bag 250 ML IV SCH ×2 (13:56→21:11)
[2020-03-15 15:00] VITALS: BP 119/50
--- NOTE | 2020-03-15 17:02 | NUR ---
Initial: Pt admit w/ increasing SOB DX bilateral pleural effusions, small L pulmonary embolism, acute respiratory and heart failure exacerbations, and type II MS per EMR. PO fluctuating ~25-50% avg heart healthy diet not meeting needs; noted pt same PO prior admit January this year. Receiving 15L oxygen r/t SOB per EMR likely to impact PO as well. Current wt 55kg bed scale w/ last wt 63kg 10 days ago; possible wt loss though unlikely such significant loss present within this time frame. Wts to fluctuate w/ bed scales as well. 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 Currently no texture modification; RD d/w RN recommending mechanical soft diet given prior RESP THER BSS recs recent admit if DO agreeable. RD recommends ensure enlive TIDWM given additional protein/kcal needs w/ fluctuating PO hx; DO notified. LBM 03/13. Will continue to monitor. Rec: 1. continue heart healthy diet; mechanical soft modification per prior RESP THER recs; encourage PO 2. ensure enlive TIDWM 3. routine bowel care 4. weekly wts Addendum: 03/15/20 at [address] Amended: Links added.
[2020-03-15 18:00] VITALS: BP 135/60
[2020-03-15] MEDS: lactose-reduced food (Ensure Enlive) - 237ml bottle PO SCH (18:00)
--- NOTE | 2020-03-15 18:18 | NUR ---
Problems reprioritized. Patient report given, questions answered & plan of care reviewed with Mando BUTLER. Patient stable at transfer of care.
[2020-03-15 22:00] VITALS: BP 123/57
[2020-03-16 02:00] VITALS: BP 140/68
[2020-03-16] MEDS: heparin 10,000 units/1 ML INJ IV PRN (04:48)
--- NOTE | 2020-03-16 06:26 | NUR ---
Patient in room PCU 3014. I have received report from CARRIE Gilmore and had the opportunity to ask questions and assume patient care. Patient on 8L high flow oxygen. Patient resting and in no acute distress. Will continue to monitor.
--- NOTE | 2020-03-16 06:27 | NUR ---
Problems reprioritized. Patient report given, questions answered & plan of care reviewed with CARRIE Frye. VSS. Medicatons administered as ordered. Care plan followed. Patient resting in bed with no signs of distress. Safety measures in place, bed in low and locked position. Call light and personal items within reach. Will continue to monitor for remainder of shift.
[2020-03-16 07:00] VITALS: BP 146/70
[2020-03-16] MEDS: K and/or MAG REPLACEMENT MC SCH ×2 (08:00→20:00)
[2020-03-16] MEDS: lactose-reduced food (Ensure Enlive) - 237ml bottle PO SCH ×3 (08:00→18:00)
[2020-03-16 08:01] LABS: BASOPHILS # (AUTO) 0.1 X10'3 (0-0.2); MEAN PLATELET VOLUME 7.3 FL (7.4-10.4); WHITE BLOOD COUNT 11.4 X10'3 (4.5-11.0)
[2020-03-16 08:05] LABS: EOSINOPHILS # (AUTO) 0.5 X10'3 (0-0.9); EOSINOPHILS % (AUTO) 4.1 % (0-6); HEMATOCRIT 27.3 % (35.0-45.0); HEMOGLOBIN 9.3 g/dl (12.0-16.0); LYMPHOCYTES # (AUTO) 2.3 X10'3 (1.1-4.8); LYMPHOCYTES % (AUTO) 19.9 % (21-51); MEAN CORPUSCULAR HEMOGLOBIN 31.9 PG (27.0-31.0); MEAN CORPUSCULAR HGB CONC 34.1 g/dL (33.0-36.5); MEAN CORPUSCULAR VOLUME 93.5 FL (78-98); MONOCYTES # (AUTO) 0.5 X10'3 (0-0.9); MONOCYTES % (AUTO) 4.2 % (2-12); NEUTROPHILS % (AUTO) 70.8 % (42-75); PLATELET COUNT 618 X10'3 (140-440); RED BLOOD COUNT 2.92 X10'6 (4.20-5.60); RED CELL DISTRIBUTION WIDTH 13.9 % (11.5-14.5)
[2020-03-16 08:12] LABS: ALBUMIN 1.3 G/DL (3.4-5.0); ANION GAP 2 (8-16); BLOOD UREA NITROGEN 12 MG/DL (7-18); BUN/CREATININE RATIO 12.4 (6.6-38.0); CALCIUM 7.1 MG/DL (8.5-10.1); CHLORIDE 100 MMOL/L (99-107); CREATININE 0.97 MG/DL (0.40-0.90); GLUCOSE 80 MG/DL (70-104); MAGNESIUM 1.2 MG/DL (1.5-2.4); POTASSIUM 4.1 MMOL/L (3.5-5.1); SODIUM 137 MMOL/L (135-145); TOTAL CARBON DIOXIDE 34.6 MMOL/L (24-32); eGFR 54 ML/MIN
[2020-03-16] MEDS: metoprolol succinate 25mg (24-HOUR) SR. Tablet PO SCH (08:56)
[2020-03-16] MEDS: levoTHYROXINE 75mcg tablet PO SCH (08:57)
[2020-03-16] MEDS: lactobacillus rhamnosus 10,000 MMU CELLS/CAPSULE PO SCH ×2 (08:57→21:03)
[2020-03-16] MEDS: pantoprazole 40mg Tablet.DR PO SCH (08:57)
[2020-03-16] MEDS: losartan 50mg tablet PO SCH (08:57)
[2020-03-16] MEDS: azithromycin 250mg tablet PO SCH (08:57)
[2020-03-16] MEDS: atorvastatin 20mg tablet PO SCH (08:57)
[2020-03-16] MEDS: guaiFENesin ER 600mg tablet PO SCH ×2 (08:58→21:03)
[2020-03-16] MEDS: magnesium Cl slow-release 64mg tablet PO SCH ×3 (08:58→20:00)
[2020-03-16] MEDS: CefTRIAXone/D5W-Rocephin 1gm 50 ML IV SCH (08:58)
[2020-03-16] MEDS: HYDROchlorothiazide 12.5mg capsule PO SCH (08:58)
[2020-03-16] MEDS: furosemide 40mg/4ml inj IV SCH ×2 (08:58→21:03)
[2020-03-16] MEDS: budesonide 0.5mg/2ml UD nebule IH SCH ×2 (09:29→20:00)
[2020-03-16] MEDS: ipratropium/albuterol 3ml nebule NEB SCH ×3 (09:29→21:00)
[2020-03-16 11:00] VITALS: BP 151/65
--- NOTE | 2020-03-16 11:44 | NUR ---
CRITICAL LAB VALUE TAKEN FROM LAB, REPORTED TO PRIMARY RN.
[2020-03-16] MEDS ORDERED: ondansetron/PF 4mg/2ml inj IV PRN (11:50)
--- NOTE | 2020-03-16 11:53 | NUR ---
New order from Dr. Brown. Zofran 4 mg IV PRN nausea.
--- NOTE | 2020-03-16 13:21 | NUR ---
Removed 15 rashaad from midline incision. Well approximated. Open to air.
--- NOTE | 2020-03-16 13:53 | NUR ---
Paged Dr. Brown: PAGER ID: [phone] MESSAGE: RE: Fidencio Enamorado [id number]. FYI - midline rashaad removed. Incision well approximated. Open to air. Melva [phone]
[2020-03-16] MEDS: heparin 25,000 UNIT/250ml bag 250 ML IV SCH (14:08)
[2020-03-16 15:00] VITALS: BP 125/67
[2020-03-16 17:03] LABS: NUCLEATED RED BLOOD CELLS 1 /100WBC (0-0)
[2020-03-16 17:05] LABS: PLATELET ESTIMATE INCREASED; SMUDGE CELLS 1+; STOMATOCYTES 2+; TOTAL CELLS COUNTED 200
[2020-03-16 18:00] VITALS: BP 137/59
--- NOTE | 2020-03-16 18:12 | NUR ---
Problems reprioritized. Patient report given, questions answered & plan of care reviewed with CARRIE Vasquez. Patient stable at transfer of care.
[2020-03-16 22:00] VITALS: BP 152/66
[2020-03-17 02:00] VITALS: BP 163/75
[2020-03-17] MEDS: heparin 25,000 UNIT/250ml bag 250 ML IV SCH ×4 (03:20→18:30)
[2020-03-17] MEDS: heparin 10,000 units/1 ML INJ IV PRN ×3 (03:20→18:28)
--- NOTE | 2020-03-17 04:12 | NUR ---
Patient in room PCU 3014. I have received report from CARRIE Frye and had the opportunity to ask questions and assume patient care.
--- NOTE | 2020-03-17 06:50 | NUR ---
Patient in room PCU 3014. I have received report from Christina BUTLER and had the opportunity to ask questions and assume patient care.
[2020-03-17 07:00] VITALS: BP 147/63
[2020-03-17] MEDS: lactose-reduced food (Ensure Enlive) - 237ml bottle PO SCH ×3 (08:00→18:00)
[2020-03-17] MEDS: K and/or MAG REPLACEMENT MC SCH ×2 (08:00→20:00)
[2020-03-17] MEDS: budesonide 0.5mg/2ml UD nebule IH SCH ×2 (08:21→20:40)
[2020-03-17] MEDS: ipratropium/albuterol 3ml nebule NEB SCH ×3 (08:24→20:40)
--- NOTE | 2020-03-17 09:05 | NUR ---
PRESSURE ULCER EDUCATION: DEFINITION: A pressure ulcer is an area of skin that breaks down when you stay in one position too long. The constant pressure against the skin reduces the blood flow to that area and the affected tissue dies. CAUSES: "Being bedridden or in a wheelchair "Fragile skin "Having a chronic condition, such as diabetes or vascular disease "Inability to move certain parts of your body without assistance "Older age "Incontinence of urine or stool SYMPTOMS: "A reddened area that DOES NOT turn white when pressed on - this can be the beginning of a pressure ulcer "A blister, deep sore or a crater - these can be advanced pressure ulcers FIRST AID: "Relieve the pressure on this area "Keep the area clean and dry "Call your primary doctor if you see any of the above symptoms "DO NOT massage the area "DO NOT use a donut shaped or ring shaped pillow- these actually interfere with the blood flow and cause complications PREVENTION: "Check for pressure ulcers everyday "Change position at least every two hours to relieve pressure "Use items that help relieve pressure- pillows, sheepskin, foam padding, and powders. "Keep skin clean and dry "Eat healthy well balanced meals "Exercise daily IF YOU SEE ANY OF THESE SYMPTOMS WHILE IN THE HOSPITAL - TELL YOUR NURSE IMMEDIATELY. IF YOU SEE ANY OF THESE SYMPTOMS WHILE AT HOME OR HAVE ANY QUESTIONS OR CONCERNS ABOUT PRESSURE ULCERS - CALL YOUR PRIMARY DOCTOR IMMEDIATELY. Addendum: 03/17/20 at 0905 by Martine Sweet RN Amended: Links added.
[2020-03-17] MEDS: CefTRIAXone/D5W-Rocephin 1gm 50 ML IV SCH (09:12)
[2020-03-17] MEDS: pantoprazole 40mg Tablet.DR PO SCH (09:12)
[2020-03-17] MEDS: furosemide 40mg/4ml inj IV SCH ×2 (09:12→20:36)
[2020-03-17] MEDS: methylPREDNISolone sod succ 125mg/2ml vial IV SCH ×2 (09:13→20:36)
[2020-03-17] MEDS: lactobacillus rhamnosus 10,000 MMU CELLS/CAPSULE PO SCH ×2 (09:14→20:35)
[2020-03-17] MEDS: atorvastatin 20mg tablet PO SCH (09:14)
[2020-03-17] MEDS: losartan 50mg tablet PO SCH (09:14)
[2020-03-17] MEDS: HYDROchlorothiazide 12.5mg capsule PO SCH (09:14)
[2020-03-17] MEDS: levoTHYROXINE 75mcg tablet PO SCH (09:15)
[2020-03-17] MEDS: magnesium Cl slow-release 64mg tablet PO SCH ×2 (09:15→20:35)
[2020-03-17] MEDS: guaiFENesin ER 600mg tablet PO SCH ×2 (09:15→20:35)
[2020-03-17] MEDS: azithromycin 250mg tablet PO SCH (09:16)
[2020-03-17] MEDS: metoprolol succinate 25mg (24-HOUR) SR. Tablet PO SCH (09:18)
[2020-03-17 11:00] VITALS: BP 126/69
[2020-03-17 15:00] VITALS: BP 93/44
[2020-03-17 18:00] VITALS: BP 116/48
--- NOTE | 2020-03-17 18:30 | NUR ---
Patient in room U 3014. I have received report from CARRIE Humphrey and had the opportunity to ask questions and assume patient care. Patient resting in bed, no signs of distress. Safety measures in place, bed in low and locked position. Call light and personal items within reach. Will continue to monitor.
--- NOTE | 2020-03-17 18:36 | NUR ---
Problems reprioritized. Patient report given, questions answered & plan of care reviewed with Chris BUTLER.
[2020-03-17 22:00] VITALS: BP 121/80
[2020-03-18] VITALS (7 sets, daily range): BP systolic 104–136; BP diastolic 38–64
[2020-03-18] MEDS: heparin 25,000 UNIT/250ml bag 250 ML IV SCH (05:52)
--- NOTE | 2020-03-18 06:33 | NUR ---
Problems reprioritized. Patient report given, questions answered & plan of care reviewed with CARRIE Lambert. VSS. Care plans followed. Medications adminsitered as ordered. Safety measures in place, bed in low and locked position. Call light and personal items within reach. Will continue to monitor for remainder of shift.
--- NOTE | 2020-03-18 06:35 | NUR ---
Patient in room PCU 3014. I have received report from SHAR BUTLER and had the opportunity to ask questions and assume patient care.
[2020-03-18] MEDS: K and/or MAG REPLACEMENT MC SCH ×2 (07:57→20:00)
[2020-03-18] MEDS: lactose-reduced food (Ensure Enlive) - 237ml bottle PO SCH ×3 (08:00→18:00)
[2020-03-18] MEDS: budesonide 0.5mg/2ml UD nebule IH SCH ×2 (08:00→20:14)
[2020-03-18] MEDS: ipratropium/albuterol 3ml nebule NEB SCH ×3 (08:24→20:15)
[2020-03-18] MEDS: azithromycin 250mg tablet PO SCH (09:52)
[2020-03-18] MEDS: CefTRIAXone/D5W-Rocephin 1gm 50 ML IV SCH (09:53)
[2020-03-18] MEDS: metoprolol succinate 25mg (24-HOUR) SR. Tablet PO SCH (09:53)
[2020-03-18] MEDS: magnesium Cl slow-release 64mg tablet PO SCH ×2 (09:53→13:00)
[2020-03-18] MEDS: guaiFENesin ER 600mg tablet PO SCH ×2 (09:54→19:45)
[2020-03-18] MEDS: montelukast 10mg tablet PO SCH (09:54)
[2020-03-18] MEDS: atorvastatin 20mg tablet PO SCH (09:54)
[2020-03-18] MEDS: lactobacillus rhamnosus 10,000 MMU CELLS/CAPSULE PO SCH ×2 (09:55→19:45)
[2020-03-18] MEDS: losartan 50mg tablet PO SCH (09:55)
[2020-03-18] MEDS: levoTHYROXINE 75mcg tablet PO SCH (09:56)
[2020-03-18] MEDS: pantoprazole 40mg Tablet.DR PO SCH (09:56)
[2020-03-18] MEDS: furosemide 40mg/4ml inj IV SCH ×2 (09:56→19:45)
[2020-03-18] MEDS ORDERED: magnesium Cl slow-release 64mg tablet PO PRN (12:40)
[2020-03-18] MEDS ORDERED: magnesium 4gm in 100ml NS 100 ML IV PRN (12:40)
[2020-03-18] MEDS ORDERED: potassium Cl 40MEQ/1/2NS 520ml 520 ML IV PRN (12:40)
[2020-03-18] MEDS ORDERED: potassium Cl 20 mEq SR tablet PO PRN (12:40)
[2020-03-18] MEDS ORDERED: magnesium 2GM in 50ml NS 50 ML IV PRN (12:40)
[2020-03-18] MEDS ORDERED: lactose-reduced food (Ensure Enlive) - 237ml bottle PO SCH (13:00)
--- NOTE | 2020-03-18 15:03 | NUR ---
Reassessment: PO intake continues with 25-49% average. Poor appetite likely r/t constipation and SOB. Last BM 03/13, small size per documentation. Recommend routine bowel care to promote bowel regularity and ensure enlive in view of suboptimal PO Intake. Met pt at bedside, conversely reports that she has had a BM daily. Pt states she is not a "big" eater and is feeling satisfied from her meals, is requesting the ensure enlive with meals and prefers chocolate; states breakfast is her best meal. Has no other complaints or nutrition concerns at this time. Rec: 1. continue heart healthy diet; mechanical soft modification per prior SALES AGENT TRADING STAMPS recs; encourage PO 2. ensure enlive BID breakfast and lunch 3. routine bowel care 4. weekly wts Addendum: 03/18/20 at [address] Amended: Links added.
--- NOTE | 2020-03-18 18:32 | NUR ---
Problems reprioritized. Patient report given, questions answered & plan of care reviewed with SHAR BUTLER.
[2020-03-18] MEDS: methylPREDNISolone sod succ/PF 40mg inj. IV SCH (19:45)
[2020-03-18] MEDS ORDERED: methylPREDNISolone sod succ 125mg/2ml vial IV SCH (20:00)
[2020-03-18] MEDS ORDERED: K and/or MAG REPLACEMENT MC SCH (20:00)
[2020-03-19 02:00] VITALS: BP 114/54
[2020-03-19 04:53] LABS: BASOPHILS % (AUTO) 0.1 % (0-1); EOSINOPHILS % (AUTO) 0 % (0-6); HEMATOCRIT 24.9 % (35.0-45.0); HEMOGLOBIN 8.3 g/dl (12.0-16.0); LYMPHOCYTES # (AUTO) 1.8 X10'3 (1.1-4.8); LYMPHOCYTES % (AUTO) 8.3 % (21-51); MEAN CORPUSCULAR HEMOGLOBIN 30.8 PG (27.0-31.0); MEAN CORPUSCULAR HGB CONC 33.4 g/dL (33.0-36.5); MEAN CORPUSCULAR VOLUME 92.2 FL (78-98); MEAN PLATELET VOLUME 7.8 FL (7.4-10.4); MONOCYTES # (AUTO) 0.7 X10'3 (0-0.9); NEUTROPHILS # (AUTO) 19.6 X10'3 (1.8-7.7); NEUTROPHILS % (AUTO) 88.6 % (42-75); PLATELET COUNT 512 X10'3 (140-440); RED CELL DISTRIBUTION WIDTH 13.8 % (11.5-14.5); WHITE BLOOD COUNT 22.1 X10'3 (4.5-11.0)
[2020-03-19 04:58] LABS: ALBUMIN 1.4 G/DL (3.4-5.0); ANION GAP 5 (8-16); BLOOD UREA NITROGEN 25 MG/DL (7-18); BUN/CREATININE RATIO 20.3 (6.6-38.0); CHLORIDE 94 MMOL/L (99-107); CREATININE 1.23 MG/DL (0.40-0.90); GLUCOSE 140 MG/DL (70-104); MAGNESIUM 1.3 MG/DL (1.5-2.4); SODIUM 133 MMOL/L (135-145); TOTAL CARBON DIOXIDE 33.8 MMOL/L (24-32); eGFR 41 ML/MIN
[2020-03-19 05:01] LABS: POTASSIUM 2.5 MMOL/L (3.5-5.1)
[2020-03-19] MEDS: potassium Cl 20 mEq SR tablet PO PRN ×3 (05:10→13:44)
[2020-03-19] MEDS: magnesium Cl slow-release 64mg tablet PO SCH ×2 (05:10→08:28)
--- NOTE | 2020-03-19 05:17 | NUR ---
Patients potassium is 2.5, notified Dr. Rodriguez. Administered 40 MEQ of potassium per protocol.
[2020-03-19 06:30] VITALS: BP 134/64
--- NOTE | 2020-03-19 06:49 | NUR ---
Problems reprioritized. Patient report given, questions answered & plan of care reviewed with CARRIE Vallejo. Patient resting in bed. No signs of distress. Care plan followed, medications administered as ordered. Safety measures in place, bed in low and locked position. Call light and personal items within reach.Will continue to monitor for remainder of shift.
[2020-03-19] MEDS: K and/or MAG REPLACEMENT MC SCH ×2 (07:17→19:44)
[2020-03-19] MEDS: lactose-reduced food (Ensure Enlive) - 237ml bottle PO SCH ×2 (08:27→13:11)
[2020-03-19] MEDS: guaiFENesin ER 600mg tablet PO SCH ×2 (08:28→19:40)
[2020-03-19] MEDS: montelukast 10mg tablet PO SCH (08:28)
[2020-03-19] MEDS: methylPREDNISolone sod succ/PF 40mg inj. IV SCH ×2 (08:28→19:42)
[2020-03-19] MEDS: furosemide 40mg/4ml inj IV SCH ×2 (08:28→19:37)
[2020-03-19] MEDS: atorvastatin 20mg tablet PO SCH (08:28)
[2020-03-19] MEDS: lactobacillus rhamnosus 10,000 MMU CELLS/CAPSULE PO SCH ×2 (08:29→19:40)
[2020-03-19] MEDS: azithromycin 250mg tablet PO SCH (08:29)
[2020-03-19] MEDS: pantoprazole 40mg Tablet.DR PO SCH (08:29)
[2020-03-19] MEDS: levoTHYROXINE 75mcg tablet PO SCH (08:29)
[2020-03-19] MEDS: metoprolol succinate 25mg (24-HOUR) SR. Tablet PO SCH (08:29)
[2020-03-19] MEDS: CefTRIAXone/D5W-Rocephin 1gm 50 ML IV SCH (08:30)
[2020-03-19] MEDS: losartan 50mg tablet PO SCH (08:30)
[2020-03-19] MEDS: budesonide 0.5mg/2ml UD nebule IH SCH ×2 (08:34→20:08)
[2020-03-19] MEDS: ipratropium/albuterol 3ml nebule NEB SCH ×3 (08:35→20:08)
[2020-03-19 11:00] VITALS: BP 120/49
[2020-03-19 12:56] LABS: ABG BASE EXCESS 5.5 mmol/L (-2.0-2.0); ABG HCO3 30.2 mmol/L (22.0-26.0); ABG OXYGEN SATURATION 87.6 % (94-97); ABG PCO2 (T) 44.6 mmHg (32.0-45.0); ABG PO2 (T) 56.5 mmHg (75.0-100.0); ALLEN'S TEST POSITIVE; FCOHb 0.3 % (0.0-3.9); FMetHb 0.3 % (0.0-1.5); FO2Hb 87.1 % (94-97); TOTAL HEMOGLOBIN 11.1 G/dl (12.0-16.0)
[2020-03-19 15:00] VITALS: BP 106/49
[2020-03-19 18:00] VITALS: BP 98/55
--- NOTE | 2020-03-19 18:40 | NUR ---
Patient in room PCU 3014. I have received report from Genevieve BUTLER and had the opportunity to ask questions and assume patient care.
[2020-03-19] MEDS: apixaban 5mg tablet PO SCH (19:40)
[2020-03-19] MEDS ORDERED: magnesium Cl slow-release 64mg tablet PO ONE (20:00)
[2020-03-19] MEDS ORDERED: magnesium Cl slow-release 64mg tablet PO SCH (20:00)
[2020-03-19 22:00] VITALS: BP 122/63
[2020-03-20 02:00] VITALS: BP 117/50
[2020-03-20 06:00] VITALS: BP 110/78
--- NOTE | 2020-03-20 06:45 | NUR ---
Patient in room PCU 3014. I have received report from Martina BUTLER and had the opportunity to ask questions and assume patient care.
--- NOTE | 2020-03-20 06:48 | NUR ---
Problems reprioritized. Patient report given, questions answered & plan of care reviewed with Ying BUTLER.
[2020-03-20] MEDS: lactose-reduced food (Ensure Enlive) - 237ml bottle PO SCH ×2 (07:30→12:30)
[2020-03-20] MEDS: K and/or MAG REPLACEMENT MC SCH ×2 (08:00→19:36)
[2020-03-20] MEDS: lactobacillus rhamnosus 10,000 MMU CELLS/CAPSULE PO SCH ×2 (08:19→19:28)
[2020-03-20] MEDS: metoprolol succinate 25mg (24-HOUR) SR. Tablet PO SCH (08:19)
[2020-03-20] MEDS: CefTRIAXone/D5W-Rocephin 1gm 50 ML IV SCH (08:19)
[2020-03-20] MEDS: pantoprazole 40mg Tablet.DR PO SCH (08:19)
[2020-03-20] MEDS: magnesium Cl slow-release 64mg tablet PO SCH ×2 (08:20→19:28)
[2020-03-20] MEDS: losartan 50mg tablet PO SCH (08:20)
[2020-03-20] MEDS: atorvastatin 20mg tablet PO SCH (08:20)
[2020-03-20] MEDS: azithromycin 250mg tablet PO SCH (08:20)
[2020-03-20] MEDS: apixaban 5mg tablet PO SCH ×2 (08:20→19:28)
[2020-03-20] MEDS: montelukast 10mg tablet PO SCH (08:21)
[2020-03-20] MEDS: levoTHYROXINE 75mcg tablet PO SCH (08:21)
[2020-03-20] MEDS: methylPREDNISolone sod succ/PF 40mg inj. IV SCH ×2 (08:22→19:29)
[2020-03-20] MEDS: furosemide 40mg/4ml inj IV SCH ×2 (08:22→19:29)
[2020-03-20] MEDS: guaiFENesin ER 600mg tablet PO SCH ×2 (08:22→19:29)
[2020-03-20] MEDS: budesonide 0.5mg/2ml UD nebule IH SCH ×2 (09:56→19:58)
[2020-03-20] MEDS: ipratropium/albuterol 3ml nebule NEB SCH ×3 (09:56→20:03)
[2020-03-20 11:00] VITALS: BP 124/55
--- NOTE | 2020-03-20 11:23 | NUR ---
PAGER ID: [phone] MESSAGE: re: [id number], Fidencio Enamorado No labs ordered/drawn for today, would you like any ordered. pt's Mg was 1.3 yesterday and has Mag scheduled. Thank you, Kavitha SHIPMAN [phone]
--- NOTE | 2020-03-20 11:45 | NUR ---
spoke with pt's daughter, Aletha Montenegro per phone call.
--- NOTE | 2020-03-20 13:30 | NUR ---
phoned Dietary, pt has Ensure Enlive ordered and none on tray. Will be brought up.
[2020-03-20 15:00] VITALS: BP 112/56
[2020-03-20 18:00] VITALS: BP 128/65
--- NOTE | 2020-03-20 18:30 | NUR ---
Patient in room PCU 3014. I have received report from Kavitha BUTLER and had the opportunity to ask questions and assume patient care.
--- NOTE | 2020-03-20 18:35 | NUR ---
Problems reprioritized. Patient report given, questions answered & plan of care reviewed with Martina BUTLER.
[2020-03-20 22:00] VITALS: BP 134/67
[2020-03-21] VITALS (7 sets, daily range): BP systolic 117–171; BP diastolic 44–64
--- NOTE | 2020-03-21 06:39 | NUR ---
Problems reprioritized. Patient report given, questions answered & plan of care reviewed with Sully BUTLER.
[2020-03-21] MEDS: ipratropium/albuterol 3ml nebule NEB SCH ×3 (07:20→20:17)
[2020-03-21] MEDS: budesonide 0.5mg/2ml UD nebule IH SCH ×2 (07:20→20:17)
[2020-03-21] MEDS: lactose-reduced food (Ensure Enlive) - 237ml bottle PO SCH ×2 (07:30→12:41)
[2020-03-21] MEDS: K and/or MAG REPLACEMENT MC SCH ×2 (08:00→20:00)
[2020-03-21] MEDS: apixaban 5mg tablet PO SCH ×2 (08:11→20:33)
[2020-03-21] MEDS: CefTRIAXone/D5W-Rocephin 1gm 50 ML IV SCH (08:12)
[2020-03-21] MEDS: pantoprazole 40mg Tablet.DR PO SCH (08:13)
[2020-03-21] MEDS: lactobacillus rhamnosus 10,000 MMU CELLS/CAPSULE PO SCH ×2 (08:13→20:34)
[2020-03-21] MEDS: atorvastatin 20mg tablet PO SCH (08:13)
[2020-03-21] MEDS: azithromycin 250mg tablet PO SCH (08:13)
[2020-03-21] MEDS: guaiFENesin ER 600mg tablet PO SCH ×2 (08:14→20:34)
[2020-03-21] MEDS: montelukast 10mg tablet PO SCH (08:14)
[2020-03-21] MEDS: furosemide 40mg/4ml inj IV SCH ×2 (08:14→20:34)
[2020-03-21] MEDS: losartan 50mg tablet PO SCH (08:14)
[2020-03-21] MEDS: metoprolol succinate 25mg (24-HOUR) SR. Tablet PO SCH (08:14)
[2020-03-21] MEDS: levoTHYROXINE 75mcg tablet PO SCH (08:14)
--- NOTE | 2020-03-21 09:00 | NUR ---
Patient with wick, changed per protocol.
[2020-03-21] MEDS: methylPREDNISolone sod succ/PF 40mg inj. IV SCH ×2 (09:02→20:34)
[2020-03-21] MEDS: magnesium Cl slow-release 64mg tablet PO SCH ×2 (09:02→20:33)
--- NOTE | 2020-03-21 10:32 | NUR ---
Patient in room PCU 3014. I have received report from NOC shift RN and had the opportunity to ask questions and assume patient care.
--- NOTE | 2020-03-21 15:02 | NUR ---
Reassessment: PO intake continues with 50-75% average, 75-100% PO intake ensure enlive. Last BM 03/20, moderate. Pt reports is not a "big" eater and is feeling satisfied from her meals. No need for further nutrition intervention at this time. Rec: 1. continue heart healthy diet; mechanical soft modification per prior SENIOR ACCOUNTING ANALYST recs; encourage PO 2. ensure enlive BID breakfast and lunch 3. routine bowel care 4. weekly wts Addendum: 03/21/20 at [address] Amended: Links added.
--- NOTE | 2020-03-21 15:53 | NUR ---
Phoned patients daughter, return call. Updated Vanessa on current situation. Vanessa would appreciate a call from CM concerning patients discharge. Vanessa will call in tomorrow to talk to a CM.
--- NOTE | 2020-03-21 18:17 | NUR ---
Problems reprioritized. Patient report given, questions answered & plan of care reviewed with Elida Foss RN.
--- NOTE | 2020-03-21 18:30 | NUR ---
Patient in room PCU 3014. I have received report from CARRIE Virk and had the opportunity to ask questions and assume patient care.
--- NOTE | 2020-03-22 00:23 | NUR ---
Patients O2 was up to 8L. Spoke to aid and RT; no one claims to have bumped up O2. Titrating down; RT recommends 3L based on previous days needs. Will titrate and continue to monitor.
[2020-03-22 02:00] VITALS: BP 125/65
[2020-03-22 06:00] VITALS: BP 112/64
--- NOTE | 2020-03-22 06:00 | NUR ---
Patient in room PCU 3014. I have received report from CARRIE Marrero and had the opportunity to ask questions and assume patient care.
--- NOTE | 2020-03-22 06:29 | NUR ---
Problems reprioritized. Patient report given, questions answered & plan of care reviewed with CARRIE Agrawal.
[2020-03-22] MEDS: ipratropium/albuterol 3ml nebule NEB SCH ×3 (07:23→20:52)
[2020-03-22] MEDS: budesonide 0.5mg/2ml UD nebule IH SCH ×2 (07:23→20:52)
[2020-03-22] MEDS: lactose-reduced food (Ensure Enlive) - 237ml bottle PO SCH ×2 (07:30→12:30)
[2020-03-22] MEDS: methylPREDNISolone sod succ/PF 40mg inj. IV SCH (07:49)
[2020-03-22] MEDS: levoTHYROXINE 75mcg tablet PO SCH (07:49)
[2020-03-22] MEDS: metoprolol succinate 25mg (24-HOUR) SR. Tablet PO SCH (07:49)
[2020-03-22] MEDS: CefTRIAXone/D5W-Rocephin 1gm 50 ML IV SCH (07:49)
[2020-03-22] MEDS: furosemide 40mg/4ml inj IV SCH ×2 (07:49→20:17)
[2020-03-22] MEDS: guaiFENesin ER 600mg tablet PO SCH ×2 (07:50→20:18)
[2020-03-22] MEDS: azithromycin 250mg tablet PO SCH (07:50)
[2020-03-22] MEDS: pantoprazole 40mg Tablet.DR PO SCH (07:50)
[2020-03-22] MEDS: montelukast 10mg tablet PO SCH (07:50)
[2020-03-22] MEDS: lactobacillus rhamnosus 10,000 MMU CELLS/CAPSULE PO SCH ×2 (07:50→20:17)
[2020-03-22] MEDS: magnesium Cl slow-release 64mg tablet PO SCH ×2 (07:50→20:18)
[2020-03-22] MEDS: atorvastatin 20mg tablet PO SCH (07:51)
[2020-03-22] MEDS: losartan 50mg tablet PO SCH (07:51)
[2020-03-22] MEDS: apixaban 5mg tablet PO SCH ×2 (07:52→20:18)
[2020-03-22 08:00] LABS: BASOPHILS % (AUTO) 0.2 % (0-1); EOSINOPHILS % (AUTO) 0 % (0-6); HEMATOCRIT 28.6 % (35.0-45.0); HEMOGLOBIN 9.5 g/dl (12.0-16.0); LYMPHOCYTES # (AUTO) 2.1 X10'3 (1.1-4.8); LYMPHOCYTES % (AUTO) 8.9 % (21-51); MEAN CORPUSCULAR HEMOGLOBIN 30.8 PG (27.0-31.0); MEAN CORPUSCULAR HGB CONC 33.1 g/dL (33.0-36.5); MEAN CORPUSCULAR VOLUME 93.1 FL (78-98); MONOCYTES % (AUTO) 4.2 % (2-12); NEUTROPHILS # (AUTO) 19.9 X10'3 (1.8-7.7); NEUTROPHILS % (AUTO) 86.7 % (42-75); PLATELET COUNT 423 X10'3 (140-440); RED BLOOD COUNT 3.07 X10'6 (4.20-5.60); RED CELL DISTRIBUTION WIDTH 13.9 % (11.5-14.5)
[2020-03-22] MEDS: K and/or MAG REPLACEMENT MC SCH ×2 (08:00→20:00)
[2020-03-22 08:15] LABS: ALANINE AMINOTRANSFERASE 36 U/L (12-78); ALBUMIN 1.5 G/DL (3.4-5.0); ALBUMIN/GLOBULIN RATIO 0.3 (1.1-1.5); ALKALINE PHOSPHATASE 69 IU/L (46-116); ANION GAP 6 (8-16); ASPARTATE AMINO TRANSFERASE 28 U/L (10-37); BILIRUBIN,TOTAL 0.2 MG/DL (0.1-1.0); BLOOD UREA NITROGEN 53 MG/DL (7-18); BUN/CREATININE RATIO 48.6 (6.6-38.0); CALCIUM 7.6 MG/DL (8.5-10.1); CHLORIDE 97 MMOL/L (99-107); CREATININE 1.09 MG/DL (0.40-0.90); GLUCOSE 115 MG/DL (70-104); POTASSIUM 3.9 MMOL/L (3.5-5.1); SODIUM 133 MMOL/L (135-145); TOTAL CARBON DIOXIDE 29.9 MMOL/L (24-32); TOTAL PROTEIN 5.8 G/DL (6.4-8.2); eGFR 48 ML/MIN
[2020-03-22 11:00] VITALS: BP 120/53
[2020-03-22 15:00] VITALS: BP 103/47
[2020-03-22 18:00] VITALS: BP 124/61
--- NOTE | 2020-03-22 18:55 | NUR ---
Problems reprioritized. Patient report given, questions answered & plan of care reviewed with CARRIE Hernandez.
[2020-03-22 22:00] VITALS: BP 132/57
[2020-03-23 02:00] VITALS: BP 154/82
[2020-03-23 06:30] VITALS: BP 171/73
--- NOTE | 2020-03-23 06:52 | NUR ---
Patient in room PCU 3014. I have received report from David BUTLER and had the opportunity to ask questions and assume patient care.
[2020-03-23] MEDS: lactose-reduced food (Ensure Enlive) - 237ml bottle PO SCH ×2 (07:30→13:17)
[2020-03-23] MEDS: K and/or MAG REPLACEMENT MC SCH ×2 (08:00→20:00)
[2020-03-23] MEDS: budesonide 0.5mg/2ml UD nebule IH SCH ×2 (08:22→21:33)
[2020-03-23] MEDS: ipratropium/albuterol 3ml nebule NEB SCH ×3 (08:22→21:34)
[2020-03-23] MEDS: CefTRIAXone/D5W-Rocephin 1gm 50 ML IV SCH (08:57)
[2020-03-23] MEDS: montelukast 10mg tablet PO SCH (08:57)
[2020-03-23] MEDS: furosemide 40mg/4ml inj IV SCH ×2 (08:57→20:16)
[2020-03-23] MEDS: losartan 50mg tablet PO SCH (08:58)
[2020-03-23] MEDS: apixaban 5mg tablet PO SCH ×2 (08:58→20:15)
[2020-03-23] MEDS: lactobacillus rhamnosus 10,000 MMU CELLS/CAPSULE PO SCH ×2 (08:59→20:16)
[2020-03-23] MEDS: magnesium Cl slow-release 64mg tablet PO SCH ×2 (08:59→20:16)
[2020-03-23] MEDS: levoTHYROXINE 75mcg tablet PO SCH (08:59)
[2020-03-23] MEDS: atorvastatin 20mg tablet PO SCH (08:59)
[2020-03-23] MEDS: metoprolol succinate 25mg (24-HOUR) SR. Tablet PO SCH (08:59)
[2020-03-23] MEDS: guaiFENesin ER 600mg tablet PO SCH ×2 (08:59→20:15)
[2020-03-23] MEDS: pantoprazole 40mg Tablet.DR PO SCH (09:01)
[2020-03-23 11:00] VITALS: BP 127/58
[2020-03-23 15:00] VITALS: BP 101/52
[2020-03-23 18:00] VITALS: BP 111/54
--- NOTE | 2020-03-23 18:20 | NUR ---
Problems reprioritized. Patient report given, questions answered & plan of care reviewed with Willard BUTLER.
--- NOTE | 2020-03-23 18:24 | NUR ---
Report given to David BUTLER
--- NOTE | 2020-03-23 18:35 | NUR ---
Patient in room PCU 3014. I have received report from CARRIE Pizano and had the opportunity to ask questions and assume patient care.Patient is to move to Surgical floor and Jerica also gave report to CARRIE Hernandez. Della stout daughter has been informed of the move and the room number. I also spoke to patient about her move and she is in agreement. She is alox4, in no apparent distress.
--- NOTE | 2020-03-23 19:12 | NUR ---
Transferred patient with her belongings to room 349B via wheelchair. David assumed care.
[2020-03-24] VITALS: BP 108/49
--- NOTE | 2020-03-24 06:58 | NUR ---
Patient in room JESUS 349. I have received report from CARRIE Hernandez and had the opportunity to ask questions and assume patient care.
[2020-03-24] MEDS: lactose-reduced food (Ensure Enlive) - 237ml bottle PO SCH ×2 (07:30→12:30)
[2020-03-24] MEDS: pantoprazole 40mg Tablet.DR PO SCH (07:30)
[2020-03-24 08:00] VITALS: BP 122/55
[2020-03-24] MEDS: budesonide 0.5mg/2ml UD nebule IH SCH ×2 (08:00→20:52)
[2020-03-24] MEDS: K and/or MAG REPLACEMENT MC SCH ×2 (08:00→20:00)
[2020-03-24] MEDS: CefTRIAXone/D5W-Rocephin 1gm 50 ML IV SCH (08:52)
[2020-03-24] MEDS: furosemide 40mg/4ml inj IV SCH ×2 (08:57→17:14)
[2020-03-24] MEDS: guaiFENesin ER 600mg tablet PO SCH ×2 (08:59→19:39)
[2020-03-24] MEDS: montelukast 10mg tablet PO SCH (08:59)
[2020-03-24] MEDS: lactobacillus rhamnosus 10,000 MMU CELLS/CAPSULE PO SCH ×2 (08:59→19:39)
[2020-03-24] MEDS: levoTHYROXINE 75mcg tablet PO SCH (08:59)
[2020-03-24] MEDS: ipratropium/albuterol 3ml nebule NEB SCH ×3 (09:00→20:52)
[2020-03-24] MEDS: losartan 50mg tablet PO SCH (09:00)
[2020-03-24] MEDS: metoprolol succinate 25mg (24-HOUR) SR. Tablet PO SCH (09:01)
[2020-03-24] MEDS: atorvastatin 20mg tablet PO SCH (09:01)
[2020-03-24] MEDS: magnesium Cl slow-release 64mg tablet PO SCH ×2 (09:02→19:39)
[2020-03-24] MEDS: apixaban 5mg tablet PO SCH ×2 (09:03→19:39)
[2020-03-24 12:00] VITALS: BP 114/55
--- NOTE | 2020-03-24 12:01 | NUR ---
Pt c/o chest pain. V/S HR 82, BP 139/65, O2 94% 4L. MD notified. EKG review by Dr George. PAGER ID: [phone] MESSAGE: [facility] [phone]. Pt: Fei Mac; 349-B. Pt c/o chest pain. V/S stabled. No other sighs or symptoms noted. EKG on progress
[2020-03-24 18:00] VITALS: BP 112/55
--- NOTE | 2020-03-24 19:09 | NUR ---
Patient in room JESUS 349. I have received report from Kathy BULTER and had the opportunity to ask questions and assume patient care.
--- NOTE | 2020-03-24 19:14 | NUR ---
Problems reprioritized. Patient report given, questions answered & plan of care reviewed with CARRIE Blancas.
--- NOTE | 2020-03-25 06:30 | NUR ---
Problems reprioritized. Patient report given, questions answered & plan of care reviewed with Kathy BUTLER.
--- NOTE | 2020-03-25 06:51 | NUR ---
Patient in room JESUS 349. I have received report from CARRIE Pena and had the opportunity to ask questions and assume patient care.
[2020-03-25 08:00] VITALS: BP 121/62
[2020-03-25] MEDS: K and/or MAG REPLACEMENT MC SCH ×2 (08:00→20:00)
[2020-03-25] MEDS: furosemide 40mg/4ml inj IV SCH (08:15)
[2020-03-25] MEDS: levoTHYROXINE 75mcg tablet PO SCH (08:19)
[2020-03-25] MEDS: guaiFENesin ER 600mg tablet PO SCH ×2 (08:19→21:49)
[2020-03-25] MEDS: magnesium Cl slow-release 64mg tablet PO SCH ×2 (08:19→21:50)
[2020-03-25] MEDS: montelukast 10mg tablet PO SCH (08:19)
[2020-03-25] MEDS: metoprolol succinate 25mg (24-HOUR) SR. Tablet PO SCH (08:20)
[2020-03-25] MEDS: pantoprazole 40mg Tablet.DR PO SCH (08:20)
[2020-03-25] MEDS: apixaban 5mg tablet PO SCH ×2 (08:21→21:49)
[2020-03-25] MEDS: lactobacillus rhamnosus 10,000 MMU CELLS/CAPSULE PO SCH ×2 (08:21→21:49)
[2020-03-25] MEDS: atorvastatin 20mg tablet PO SCH (08:21)
[2020-03-25] MEDS: losartan 50mg tablet PO SCH (08:22)
[2020-03-25] MEDS: CefTRIAXone/D5W-Rocephin 1gm 50 ML IV SCH (08:28)
[2020-03-25] MEDS: lactose-reduced food (Ensure Enlive) - 237ml bottle PO SCH ×2 (08:29→12:30)
[2020-03-25] MEDS: budesonide 0.5mg/2ml UD nebule IH SCH ×2 (09:16→19:18)
[2020-03-25] MEDS: ipratropium/albuterol 3ml nebule NEB SCH ×3 (09:16→19:19)
[2020-03-25 12:00] VITALS: BP 107/52
[2020-03-25 18:30] VITALS: BP 122/52
--- NOTE | 2020-03-25 18:42 | NUR ---
Problems reprioritized. Patient report given, questions answered & plan of care reviewed with CARRIE Hernandez.
[2020-03-26] VITALS: BP 139/58
--- NOTE | 2020-03-26 06:05 | NUR ---
Patient in room JESUS 349. I have received report from CARRIE Hernandez and had the opportunity to ask questions and assume patient care.
[2020-03-26 06:30] VITALS: BP 130/58
[2020-03-26] MEDS: K and/or MAG REPLACEMENT MC SCH ×2 (06:52→19:44)
[2020-03-26] MEDS: lactose-reduced food (Ensure Enlive) - 237ml bottle PO SCH ×2 (07:30→12:55)
[2020-03-26] MEDS: budesonide 0.5mg/2ml UD nebule IH SCH ×2 (07:40→20:15)
[2020-03-26] MEDS: ipratropium/albuterol 3ml nebule NEB SCH ×3 (07:40→20:15)
[2020-03-26] MEDS: CefTRIAXone/D5W-Rocephin 1gm 50 ML IV SCH (08:28)
[2020-03-26] MEDS: atorvastatin 20mg tablet PO SCH (08:28)
[2020-03-26] MEDS: furosemide 40mg/4ml inj IV SCH (08:28)
[2020-03-26] MEDS: magnesium Cl slow-release 64mg tablet PO SCH ×2 (08:29→19:44)
[2020-03-26] MEDS: pantoprazole 40mg Tablet.DR PO SCH (08:29)
[2020-03-26] MEDS: guaiFENesin ER 600mg tablet PO SCH ×2 (08:29→19:44)
[2020-03-26] MEDS: losartan 50mg tablet PO SCH (08:29)
[2020-03-26] MEDS: lactobacillus rhamnosus 10,000 MMU CELLS/CAPSULE PO SCH ×2 (08:29→19:44)
[2020-03-26] MEDS: metoprolol succinate 25mg (24-HOUR) SR. Tablet PO SCH (08:29)
[2020-03-26] MEDS: apixaban 5mg tablet PO SCH ×2 (08:30→19:44)
[2020-03-26] MEDS: levoTHYROXINE 75mcg tablet PO SCH (08:30)
[2020-03-26] MEDS: montelukast 10mg tablet PO SCH (08:30)
[2020-03-26 11:00] VITALS: BP 103/43
[2020-03-26] MEDS ORDERED: ALPRAZolam 0.25mg tablet PO PRN (15:15)
--- NOTE | 2020-03-26 18:30 | NUR ---
Problems reprioritized. Patient report given, questions answered & plan of care reviewed with CARRIE Mack.
--- NOTE | 2020-03-26 18:37 | NUR ---
Patient in room JESUS 349. I have received report from Genevieve BUTLER and had the opportunity to ask questions and assume patient care.
[2020-03-26 20:00] VITALS: BP 102/48
[2020-03-27] VITALS: BP 100/51
--- NOTE | 2020-03-27 06:25 | NUR ---
Patient in room JESUS 349. I have received report from CARRIE Mack and had the opportunity to ask questions and assume patient care.
[2020-03-27 06:30] VITALS: BP 129/66
--- NOTE | 2020-03-27 06:34 | NUR ---
Problems reprioritized. Patient report given, questions answered & plan of care reviewed with Genevieve RN.
[2020-03-27] MEDS: K and/or MAG REPLACEMENT MC SCH ×2 (07:12→20:00)
[2020-03-27] MEDS: lactose-reduced food (Ensure Enlive) - 237ml bottle PO SCH ×2 (07:30→13:06)
[2020-03-27] MEDS: ipratropium/albuterol 3ml nebule NEB SCH ×3 (08:43→22:54)
[2020-03-27] MEDS: budesonide 0.5mg/2ml UD nebule IH SCH ×2 (08:43→22:53)
[2020-03-27] MEDS: lactobacillus rhamnosus 10,000 MMU CELLS/CAPSULE PO SCH ×2 (10:01→20:41)
[2020-03-27] MEDS: pantoprazole 40mg Tablet.DR PO SCH (10:01)
[2020-03-27] MEDS: metoprolol succinate 25mg (24-HOUR) SR. Tablet PO SCH (10:01)
[2020-03-27] MEDS: furosemide 40mg/4ml inj IV SCH (10:01)
[2020-03-27] MEDS: guaiFENesin ER 600mg tablet PO SCH ×2 (10:01→20:42)
[2020-03-27] MEDS: magnesium Cl slow-release 64mg tablet PO SCH ×2 (10:02→20:42)
[2020-03-27] MEDS: losartan 50mg tablet PO SCH (10:03)
[2020-03-27] MEDS: apixaban 5mg tablet PO SCH ×2 (10:04→20:41)
[2020-03-27] MEDS: atorvastatin 20mg tablet PO SCH (10:04)
[2020-03-27] MEDS: levoTHYROXINE 75mcg tablet PO SCH (10:04)
[2020-03-27] MEDS: montelukast 10mg tablet PO SCH (10:04)
[2020-03-27 11:00] VITALS: BP 110/50
[2020-03-27 11:40] LABS: BASOPHILS # (AUTO) 0.1 X10'3 (0-0.2); BASOPHILS % (AUTO) 0.8 % (0-1); EOSINOPHILS # (AUTO) 0.5 X10'3 (0-0.9); EOSINOPHILS % (AUTO) 4.8 % (0-6); HEMATOCRIT 27.4 % (35.0-45.0); HEMOGLOBIN 9.6 g/dl (12.0-16.0); LYMPHOCYTES # (AUTO) 1.6 X10'3 (1.1-4.8); MEAN CORPUSCULAR HEMOGLOBIN 32.7 PG (27.0-31.0); MEAN CORPUSCULAR HGB CONC 34.9 g/dL (33.0-36.5); MEAN CORPUSCULAR VOLUME 93.7 FL (78-98); MEAN PLATELET VOLUME 8.7 FL (7.4-10.4); MONOCYTES # (AUTO) 0.7 X10'3 (0-0.9); MONOCYTES % (AUTO) 7.5 % (2-12); NEUTROPHILS # (AUTO) 6.9 X10'3 (1.8-7.7); NEUTROPHILS % (AUTO) 70.9 % (42-75); PLATELET COUNT 351 X10'3 (140-440); RED BLOOD COUNT 2.92 X10'6 (4.20-5.60); RED CELL DISTRIBUTION WIDTH 14.5 % (11.5-14.5); WHITE BLOOD COUNT 9.7 X10'3 (4.5-11.0)
[2020-03-27 11:51] LABS: ALANINE AMINOTRANSFERASE 65 U/L (12-78); ALBUMIN 1.7 G/DL (3.4-5.0); ALBUMIN/GLOBULIN RATIO 0.4 (1.1-1.5); ALKALINE PHOSPHATASE 67 IU/L (46-116); ANION GAP 6 (8-16); ASPARTATE AMINO TRANSFERASE 45 U/L (10-37); BILIRUBIN,TOTAL 0.3 MG/DL (0.1-1.0); BLOOD UREA NITROGEN 33 MG/DL (7-18); BUN/CREATININE RATIO 36.3 (6.6-38.0); CALCIUM 8.2 MG/DL (8.5-10.1); CHLORIDE 97 MMOL/L (99-107); CREATININE 0.91 MG/DL (0.40-0.90); GLUCOSE 106 MG/DL (70-104); POTASSIUM 4.2 MMOL/L (3.5-5.1); SODIUM 136 MMOL/L (135-145); TOTAL CARBON DIOXIDE 33.2 MMOL/L (24-32); TOTAL PROTEIN 5.9 G/DL (6.4-8.2); eGFR 59 ML/MIN
--- NOTE | 2020-03-27 18:04 | NUR ---
I have received report from Genevieve BUTLER and had the opportunity to ask questions and assume patient care.
--- NOTE | 2020-03-27 18:20 | NUR ---
Problems reprioritized. Patient report given, questions answered & plan of care reviewed with CARRIE Lopez.
[2020-03-27 20:00] VITALS: BP 104/56
[2020-03-28] VITALS: BP 109/58
[2020-03-28 06:30] VITALS: BP 113/52
--- NOTE | 2020-03-28 06:30 | NUR ---
Problems reprioritized. Patient report given, questions answered & plan of care reviewed with Genevieve RN.
[2020-03-28] MEDS: K and/or MAG REPLACEMENT MC SCH ×2 (07:23→20:00)
[2020-03-28] MEDS: lactose-reduced food (Ensure Enlive) - 237ml bottle PO SCH ×2 (07:30→12:30)
[2020-03-28] MEDS: ipratropium/albuterol 3ml nebule NEB SCH ×3 (07:39→21:14)
[2020-03-28] MEDS: budesonide 0.5mg/2ml UD nebule IH SCH ×2 (07:39→21:14)
[2020-03-28] MEDS: metoprolol succinate 25mg (24-HOUR) SR. Tablet PO SCH (10:34)
[2020-03-28] MEDS: pantoprazole 40mg Tablet.DR PO SCH (10:34)
[2020-03-28] MEDS: magnesium Cl slow-release 64mg tablet PO SCH ×2 (10:34→20:13)
[2020-03-28] MEDS: lactobacillus rhamnosus 10,000 MMU CELLS/CAPSULE PO SCH ×2 (10:35→20:12)
[2020-03-28] MEDS: guaiFENesin ER 600mg tablet PO SCH ×2 (10:35→20:12)
[2020-03-28] MEDS: levoTHYROXINE 75mcg tablet PO SCH (10:35)
[2020-03-28] MEDS: atorvastatin 20mg tablet PO SCH (10:35)
[2020-03-28] MEDS: montelukast 10mg tablet PO SCH (10:35)
[2020-03-28] MEDS: apixaban 5mg tablet PO SCH ×2 (10:35→20:12)
[2020-03-28] MEDS: furosemide 40mg/4ml inj IV SCH (10:35)
[2020-03-28] MEDS: losartan 50mg tablet PO SCH (10:37)
[2020-03-28 11:00] VITALS: BP 104/57
--- NOTE | 2020-03-28 12:04 | NUR ---
Reassessment: PO intake continues with 50-75% average, 75-100% PO intake ensure enlive. Last BM 03/25, moderate. Pt reports is not a "big" eater and is feeling satisfied from her meals. No need for further nutrition intervention at this time. Awaiting placement. Rec: 1. continue heart healthy diet; mechanical soft modification per prior SALES OPERATIONS recs; encourage PO 2. ensure enlive BID breakfast and lunch 3. routine bowel care 4. weekly wts Addendum: 03/28/20 at [address] Amended: Links added.
[2020-03-28 18:00] VITALS: BP 141/54
--- NOTE | 2020-03-28 18:20 | NUR ---
Problems reprioritized. Patient report given, questions answered & plan of care reviewed with CARRIE Lopez.
--- NOTE | 2020-03-28 18:45 | NUR ---
I have received report from Genevieve BUTLER and had the opportunity to ask questions and assume patient care.
[2020-03-29] VITALS: BP 91/43
[2020-03-29 00:30] VITALS: BP 100/51
--- NOTE | 2020-03-29 06:30 | NUR ---
Problems reprioritized. Patient report given, questions answered & plan of care reviewed with Dona BUTLER.
[2020-03-29 07:12] VITALS: BP 101/55
[2020-03-29] MEDS: K and/or MAG REPLACEMENT MC SCH ×2 (08:00→19:07)
[2020-03-29] MEDS: lactose-reduced food (Ensure Enlive) - 237ml bottle PO SCH ×2 (08:22→12:30)
[2020-03-29] MEDS: pantoprazole 40mg Tablet.DR PO SCH (08:22)
[2020-03-29] MEDS: guaiFENesin ER 600mg tablet PO SCH ×2 (08:23→19:08)
[2020-03-29] MEDS: montelukast 10mg tablet PO SCH (08:23)
[2020-03-29] MEDS: magnesium Cl slow-release 64mg tablet PO SCH ×2 (08:23→19:12)
[2020-03-29] MEDS: levoTHYROXINE 75mcg tablet PO SCH (08:23)
[2020-03-29] MEDS: atorvastatin 20mg tablet PO SCH (08:23)
[2020-03-29] MEDS: apixaban 5mg tablet PO SCH ×2 (08:24→19:08)
[2020-03-29] MEDS: lactobacillus rhamnosus 10,000 MMU CELLS/CAPSULE PO SCH ×2 (08:24→19:08)
[2020-03-29] MEDS: metoprolol succinate 25mg (24-HOUR) SR. Tablet PO SCH (08:25)
[2020-03-29] MEDS: budesonide 0.5mg/2ml UD nebule IH SCH ×2 (08:56→20:33)
[2020-03-29] MEDS: ipratropium/albuterol 3ml nebule NEB SCH ×3 (08:56→20:33)
[2020-03-29 10:29] VITALS: BP 101/48
--- NOTE | 2020-03-29 10:50 | NUR ---
Spoke to MD during rounds. Mentioned labs to monitor kidney function and potassium levels for IV lasix administration. No new orders at this time.
[2020-03-29] MEDS: furosemide 40mg/4ml inj IV SCH (10:57)
[2020-03-29 11:58] VITALS: BP 105/52
[2020-03-29] MEDS: losartan 50mg tablet PO SCH (11:59)
--- NOTE | 2020-03-29 18:33 | NUR ---
GAVE REPORT TO MAMADOU BUTLER.
--- NOTE | 2020-03-29 18:36 | NUR ---
I have received report from Dona BUTLER and had the opportunity to ask questions and assume patient care.
[2020-03-29 20:00] VITALS: BP 92/49
[2020-03-30] VITALS: BP 91/48
[2020-03-30 00:30] VITALS: BP 99/54
--- NOTE | 2020-03-30 06:19 | NUR ---
Problems reprioritized. Patient report given, questions answered & plan of care reviewed with Yara BUTLER.
--- NOTE | 2020-03-30 06:58 | NUR ---
Patient in room JESUS 348B. I have received report from CARRIE LEON and had the opportunity to ask questions and assume patient care.
[2020-03-30 07:00] VITALS: BP 106/56
[2020-03-30] MEDS: lactose-reduced food (Ensure Enlive) - 237ml bottle PO SCH ×2 (07:51→12:54)
[2020-03-30] MEDS: pantoprazole 40mg Tablet.DR PO SCH (07:52)
[2020-03-30] MEDS: losartan 50mg tablet PO SCH (07:56)
[2020-03-30] MEDS: lactobacillus rhamnosus 10,000 MMU CELLS/CAPSULE PO SCH (07:56)
[2020-03-30] MEDS: montelukast 10mg tablet PO SCH (07:57)
[2020-03-30] MEDS: magnesium Cl slow-release 64mg tablet PO SCH (07:57)
[2020-03-30] MEDS: levoTHYROXINE 75mcg tablet PO SCH (07:57)
[2020-03-30] MEDS: metoprolol succinate 25mg (24-HOUR) SR. Tablet PO SCH (07:57)
[2020-03-30] MEDS: apixaban 5mg tablet PO SCH (07:57)
[2020-03-30] MEDS: atorvastatin 20mg tablet PO SCH (07:57)
[2020-03-30] MEDS: guaiFENesin ER 600mg tablet PO SCH (07:57)
[2020-03-30] MEDS: furosemide 40mg/4ml inj IV SCH (07:58)
[2020-03-30] MEDS: K and/or MAG REPLACEMENT MC SCH (08:00)
[2020-03-30] MEDS: budesonide 0.5mg/2ml UD nebule IH SCH (08:00)
[2020-03-30] MEDS: ipratropium/albuterol 3ml nebule NEB SCH (09:00)
[2020-03-30 11:00] VITALS: BP 110/51
--- NOTE | 2020-03-30 14:52 | NUR ---
PATIENT STABLE AND APPROPRIATE FOR DISCHARGE, IV TAKEN OUT, ALL BELONGINGS SENT WITH PATIENT, CALLED REPORT TO CARRIE EAGLE AT [facility], PATIENT TAKEN TO [facility] BY SANGEETHA CARGO AND ACCOMPANIED BY SANGEETHA CARGO STAFF MEMBER
== END 2020-03-30 14:57 | DRG 175 ==
LOC: ER 15:11 → ED HOLD 20:23 → PCU 3S 23:58 → SUR 3N 03-23 18:38
PROVIDERS: ADMIT Internal Medicine; ATTEND Family Medicine
PROC: 5A0945A Assistance with Respiratory Ventilation, 24-96 Consecutive Hours, High Flow/Velocity Cannula (ICD-10-PCS; principal; 2020-03-15)
DX: I26.99 Other pulmonary embolism without acute cor pulmonale (principal); J18.9 Pneumonia, unspecified organism; I50.33 Acute on chronic diastolic (congestive) heart failure; J96.01 Acute respiratory failure with hypoxia; J91.8 Pleural effusion in other conditions classified elsewhere; E87.1 Hypo-osmolality and hyponatremia; I11.0 Hypertensive heart disease with heart failure; Z20.828 Contact with and (suspected) exposure to other viral communicable diseases; E03.9 Hypothyroidism, unspecified; E78.5 Hyperlipidemia, unspecified; K21.9 Gastro-esophageal reflux disease without esophagitis; Z90.710 Acquired absence of both cervix and uterus; Z87.11 Personal history of peptic ulcer disease; Z87.891 Personal history of nicotine dependence; E83.42 Hypomagnesemia; Z79.899 Other long term (current) drug therapy; E87.6 Hypokalemia; F41.1 Generalized anxiety disorder; I48.0 Paroxysmal atrial fibrillation; D64.9 Anemia, unspecified
CPT/HCPCS: 36415; 36600; 71045; 71275; 80048; 80053; 82803; 83605; 83735; 83880; 84132; 84145; 84484; 85007; 85018; 85025; 85379; 85610; 85730; 87040; 87081; 87635; 93005; 93306; 94640; 94667; 94760; 96374; 97110; 97112; 97116; 97161; 97530; 97535; 99285; C9803; G0378; J0696; J1644; J1940; J2920; J2930; J3475; J7626; Q9967

== ENCOUNTER 2020-04-04 16:34 | Emergency (ER) | payer MEDICARE, BC ==
[~2020-04-04] VITALS: Ht 154.9 cm; Wt 46.7 kg
[~2020-04-04 16:34] MED LIST changes: +OMEP40CA13 PO; -PANT40TA54 PO
--- NOTE | 2020-04-04 17:46 | NUR ---
patient went to ct scan of head
--- NOTE | 2020-04-04 18:05 | NUR ---
PATIENT BACK FROM CT SCAN
--- NOTE | 2020-04-04 18:05 | NUR ---
PATIENT NO LONGER TRAUMA PATIENT
[2020-04-04 18:06] VITALS: BP 153/68
--- NOTE | 2020-04-04 18:24 | NUR ---
SANGEETHA CARGO INITIATED FOR TRANSPORT. ETA 1 HOUR
== END 2020-04-04 19:54 | disposition home or self-care (01) ==
LOC: ER 16:34
DX: S00.03XA Contusion of scalp, initial encounter (principal); S06.0X0A Concussion without loss of consciousness, initial encounter; I10 Essential (primary) hypertension; Z79.899 Other long term (current) drug therapy; W19.XXXA Unspecified fall, initial encounter; Y93.89 Activity, other specified; Y92.89 Other specified places as the place of occurrence of the external cause; Y99.8 Other external cause status
CPT/HCPCS: 70450; 99284; 99285

== ENCOUNTER → 2020-06-04 | Outpatient (CLI) | payer MEDICARE, BC ==
[~2020-06-04] MED LIST changes: +LIDOcaine 2% 5ml jelly ONE
== END | disposition home or self-care (01) ==
LOC: WOUND CARE 13:11 → EDSTATUS 13:30
PROVIDERS: ATTEND Nurse Practitioner
DX: L89.626 Pressure-induced deep tissue damage of left heel (principal); J44.9 Chronic obstructive pulmonary disease, unspecified; I73.9 Peripheral vascular disease, unspecified; E07.9 Disorder of thyroid, unspecified; E78.5 Hyperlipidemia, unspecified; E03.9 Hypothyroidism, unspecified; M19.90 Unspecified osteoarthritis, unspecified site; I11.0 Hypertensive heart disease with heart failure; I50.33 Acute on chronic diastolic (congestive) heart failure; D64.9 Anemia, unspecified; K21.9 Gastro-esophageal reflux disease without esophagitis; I48.0 Paroxysmal atrial fibrillation; E87.1 Hypo-osmolality and hyponatremia; E87.6 Hypokalemia; L84 Corns and callosities; E83.42 Hypomagnesemia; F41.1 Generalized anxiety disorder; Z90.710 Acquired absence of both cervix and uterus; Z98.49 Cataract extraction status, unspecified eye; Z87.891 Personal history of nicotine dependence; Z79.899 Other long term (current) drug therapy; Z86.711 Personal history of pulmonary embolism
CPT/HCPCS: 15275; Q4196